=== PATIENT | male | born 1970 | race Caucasian/White ===

== ENCOUNTER 2018-02-07 13:40 | Inpatient (IN) | payer SELFPAY ==
[~2018-02-07] VITALS: Ht 180.3 cm; Wt 134.5 kg
[2018-02-07] MEDS ORDERED: IOHEXOL 350 MG/ML 10 ML VIAL (for RAD DIAG) IVCONTRAST ONE (13:41)
[2018-02-07 13:56] VITALS: BP 125/69; PULSE 60; RESP 18; TEMP 98.6; O2SAT 98
[2018-02-07 14:00] VITALS: BP 125/69; PULSE 65; RESP 18; TEMP 98.6; O2SAT 99
[2018-02-07] MEDS ORDERED: ASPIRIN 81 MG CHEW TAB PO ONE (14:00)
[2018-02-07] MEDS ORDERED: SODIUM CHLOR 0.9% 1000 ML INJ 1,000 ML IV ONE ×3 (14:00→17:45)
[2018-02-07] MEDS ORDERED: SODIUM CHLORIDE 0.9% FLUSH 10 ML FLUSH IVF PRN (14:00)
[2018-02-07 14:04] VITALS: O2SAT 99
--- NOTE | 2018-02-07 14:06 | PD ---
HPI Chief Complaint: Chest Pain Time Seen by Provider: 13:57 Travel History International Travel<30 days: No Contact w/Intl Traveler<30days: No Traveled to known affect area: No History of Present Illness HPI 47-year-old male with history of diabetes, employee here at the hospital, here for evaluation of sudden onset of chest pain while at work today. The patient describes substernal chest pressure that has been progressively worsening since time of onset. There are no modifying factors. Pain does not radiate. The pain is associated with diaphoresis, nausea, and an episode of vomiting. It is currently severe. No paresthesias or motor deficits. No fevers or recent illness. Patient felt well this morning. PFSH Past Medical History Diabetes: Yes (TYPE 2) Patient Takes Glucophage: Yes Diminished Hearing: No Hypertension: Yes Tetanus Vaccination: Unknown Influenza Vaccination: Yes ?: Not Social History Alcohol Use: No Tobacco Use: No Substance Use: No Allergies-Medications (Allergen,Severity, Reaction): Coded Allergies: naproxen (Verified Allergy, Unknown, Anaphylaxis, 02/07/18) Review of Systems Except as stated in HPI: all other systems reviewed are Neg Physical Exam Narrative GENERAL: Well-developed, well-nourished, keeps eyes closed, diaphoretic, no apparent distress. SKIN: Focused skin assessment warm/diaphoretic HEAD: Atraumatic. Normocephalic. EYES: Pupils equal and round. No scleral icterus. No injection or drainage. ENT: Mucous membranes pink and moist. NECK: Trachea midline. No JVD. CARDIOVASCULAR: Regular rate and rhythm. RESPIRATORY: No accessory muscle use. Clear to auscultation. Breath sounds equal bilaterally. GASTROINTESTINAL: Abdomen soft, non-tender, nondistended. MUSCULOSKELETAL: No obvious deformities. No clubbing. No cyanosis. No edema. NEUROLOGICAL: Awake and alert. No obvious cranial nerve deficits. Motor grossly within normal limits. Normal speech. PSYCHIATRIC: Appropriate mood and affect; insight and judgment normal. Data Data Last Documented VS Vital Signs Date Time Temp Pulse Resp B/P (MAP) Pulse Ox O2 Delivery O2 Flow Rate FiO2 02/07/18 18:44 18 02/07/18 14:04 99 Nasal Cannula 2.00 02/07/18 14:00 98.6 65 Orders Orders Electrocardiogram (02/07/18 13:57) Ckmb (Isoenzyme) Profile (02/07/18 13:57) Complete Blood Count With Diff (02/07/18 13:57) Comprehensive Metabolic Panel (02/07/18 13:57) Magnesium (Mg) (02/07/18 13:57) Prothrombin Time / Inr (Pt) (02/07/18 13:57) Act Partial Throm Time (Ptt) (02/07/18 13:57) Troponin I (02/07/18 13:57) Ecg Monitoring (02/07/18 13:57) Iv Access Insert/Monitor (02/07/18 13:57) Oximetry (02/07/18 13:57) Aspirin Chew (Aspirin Chew) (02/07/18 14:00) Sodium Chloride 0.9% Flush (Ns Flush) (02/07/18 14:00) Nitroglycerin Sl (Nitrostat Sl) (02/07/18 14:00) Sodium Chlor 0.9% 1000 Ml Inj (Ns 1000 M (02/07/18 14:00) Lipase (02/07/18 14:06) Chest, Single Ap (02/07/18 13:57) Sodium Chlor 0.9% 1000 Ml Inj (Ns 1000 M (02/07/18 14:45) CKMB (02/07/18 14:11) CKMB% (02/07/18 14:11) Morphine Inj (Morphine Inj) (02/07/18 15:45) Ct Abd/Pel W Iv Contrast(Rout) (02/07/18 15:57) Hydromorphone Pf Inj (Dilaudid Pf Inj) (02/07/18 16:00) Ondansetron Inj (Zofran Inj) (02/07/18 16:00) Ondansetron Inj (Zofran Inj) (02/07/18 16:15) Iohexol 350 Inj (Omnipaque 350 Inj) (02/07/18 13:41) Potassium Chlor 20 Meq Premix (Kcl 20 Me (02/07/18 17:45) Hydromorphone Pf Inj (Dilaudid Pf Inj) (02/07/18 17:45) Sodium Chlor 0.9% 1000 Ml Inj (Ns 1000 M (02/07/18 17:45) Admit To Inpatient (02/07/18 ) Vital Signs (Adult) Q4H (02/07/18 19:09) Activity Oob With Assistance (02/07/18 19:09) Chief Technical Officer / Telemetry .CONTINUOUS (02/07/18 19:09) Diet Heart Healthy (02/08/18 Breakfast) Sodium Chlor 0.9% 1000 Ml Inj (Ns 1000 M (02/07/18 19:09) Sodium Chloride 0.9% Flush (Ns Flush) (02/07/18 19:15) Sodium Chloride 0.9% Flush (Ns Flush) (02/07/18 21:00) Basic Metabolic Panel (Bmp) (02/08/18 06:00) Complete Blood Count With Diff (02/08/18 06:00) Creatine Kinase (Cpk) (02/07/18 19:09) Creatine Kinase (Cpk) (02/08/18 01:09) Pt Request For Service (02/07/18 19:09) Naloxone Inj (Narcan Inj) (02/07/18 19:15) Inpatient Certification (02/07/18 ) Admit Order (Ed Use Only) (02/07/18 19:11) Labs Laboratory Tests Test 02/07/18 14:11 White Blood Count 14.8 TH/MM3 Red Blood Count 6.54 MIL/MM3 Hemoglobin 18.2 GM/DL Hematocrit 53.0 % Mean Corpuscular Volume 81.0 FL Mean Corpuscular Hemoglobin 27.9 PG Mean Corpuscular Hemoglobin Concent 34.4 % Red Cell Distribution Width 13.2 % Platelet Count 322 TH/MM3 Mean Platelet Volume 10.8 FL Neutrophils (%) (Auto) 61.9 % Lymphocytes (%) (Auto) 26.4 % Monocytes (%) (Auto) 9.7 % Eosinophils (%) (Auto) 1.5 % Basophils (%) (Auto) 0.5 % Neutrophils # (Auto) 9.2 TH/MM3 Lymphocytes # (Auto) 3.9 TH/MM3 Monocytes # (Auto) 1.4 TH/MM3 Eosinophils # (Auto) 0.2 TH/MM3 Basophils # (Auto) 0.1 TH/MM3 CBC Comment DIFF FINAL Differential Comment Prothrombin Time 10.3 SEC Prothromb Time International Ratio 1.0 RATIO Activated Partial Thromboplast Time 23.0 SEC Blood Urea Nitrogen 18 MG/DL Creatinine 1.48 MG/DL Random Glucose 142 MG/DL Total Protein 9.1 GM/DL Albumin 4.5 GM/DL Calcium Level 9.5 MG/DL Magnesium Level 2.1 MG/DL Alkaline Phosphatase 99 U/L Aspartate Amino Transf (AST/SGOT) 25 U/L Alanine Aminotransferase (ALT/SGPT) 47 U/L Total Bilirubin 0.8 MG/DL Sodium Level 139 MEQ/L Potassium Level 2.9 MEQ/L Chloride Level 103 MEQ/L Carbon Dioxide Level 20.2 MEQ/L Anion Gap 16 MEQ/L Estimat Glomerular Filtration Rate 51 ML/MIN Total Creatine Kinase 166 U/L Creatine Kinase MB 2.6 NG/ML Troponin I LESS THAN 0.02 NG/ML Lipase GREATER THAN 25985 U/L MDM Medical Decision Making Medical Screen Exam Complete: Yes Emergency Medical Condition: Yes Interpretation(s) EKG: Sinus, rate 66, normal axis, normal intervals, no acute ischemic abnormality. Differential Diagnosis ACS, pneumothorax, pericarditis, PE, pneumonia, GERD Narrative Course Vital signs reviewed. CBC: WBC 14.8, hemoglobin 18.2, hematocrit 53, platelets 322. CMP is remarkable for potassium 2.9, creatinine 1.48, GFR 51, random glucose 142. Cardiac enzymes are negative. Lipase is greater than 30,000. CT abdomen pelvis: CONCLUSION: 1. Induration of the fat about the pancreas and focal fluid in the upper abdomen suggest pancreatitis. 2. Diffuse fatty change without focal lesion the liver. Patient was made aware of all findings and plan for admission. He was given normal saline IV and narcotic pain medications. He will be kept n.p.o. Case discussed with hospitalist Dr. Rodríguez who will admit the patient to the medical service. Diagnosis Primary Impression: Acute pancreatitis Qualified Codes: K85.90 - Acute pancreatitis without necrosis or infection, unspecified Admitting Information Admitting Physician Requests: Admit Berto Castillo MD Feb 07, 2018 14:06
[2018-02-07] MEDS: NITROGLYCERIN 0.4 MG SL 25 TABS/BTL SL SCH ×3 (14:11→14:32)
[2018-02-07 14:28] LABS: AUTOMATED NEUTROPHIL # 9.2 TH/MM3 (1.8-7.7); BASOPHIL # 0.1 TH/MM3 (0-0.2); BASOPHIL % 0.5 % (0.0-2.0); EOSINOPHIL # 0.2 TH/MM3 (0-0.4); EOSINOPHIL % 1.5 % (0.0-4.0); HEMOGLOBIN 18.2 GM/DL (13.0-17.0); LYMPH % 26.4 % (9.0-44.0); LYMPHOCYTE # 3.9 TH/MM3 (1.0-4.8); MEAN CORPUSCULAR HEMOGLOBIN 27.9 PG (27.0-34.0); MEAN CORPUSCULAR HGB CONC 34.4 % (32.0-36.0); MEAN PLATELET VOLUME 10.8 FL (7.0-11.0); MONO % 9.7 % (0.0-8.0); MONOCYTE # 1.4 TH/MM3 (0-0.9); NEUT % 61.9 % (16.0-70.0); PLATELET COUNT 322 TH/MM3 (150-450); RED BLOOD COUNT 6.54 MIL/MM3 (4.50-5.90); RED CELL DISTRIBUTION WIDTH 13.2 % (11.6-17.2); WHITE BLOOD COUNT 14.8 TH/MM3 (4.0-11.0)
[2018-02-07 14:36] LABS: PROTHROMBIN TIME - PATIENT 10.3 SEC (9.8-11.6)
--- NOTE | 2018-02-07 14:58 | RADRPT ---
EXAM DATE/TIME: 02/07/2018 14:27 [facility] COMPARISON: No previous studies available for comparison. INDICATIONS : Chest pain. Short of breath. MEDICAL HISTORY : None. SURGICAL HISTORY : None. ENCOUNTER: Initial ACUITY: 1 day PAIN SCORE: 8/10 LOCATION: Bilateral chest FINDINGS: A single view of the chest demonstrates the lungs to be symmetrically aerated without evidence of mas s, infiltrate or effusion. The cardiomediastinal contours are unremarkable. Osseous structures are intact. CONCLUSION: The lungs are clear. Porfirio Whitley MD on February 07, 2018 at 14:56 Board Certified Radiologist. This report was verified electronically.
[2018-02-07 15:20] LABS: ALBUMIN 4.5 GM/DL (3.4-5.0); ALKALINE PHOSPHATASE 99 U/L (45-117); ALT (GPT) 47 U/L (12-78); AST (GOT) 25 U/L (15-37); BICARBONATE 20.2 MEQ/L (21.0-32.0); BLOOD UREA NITROGEN 18 MG/DL (7-18); CALCIUM 9.5 MG/DL (8.5-10.1); CHLORIDE 103 MEQ/L (98-107); CREATININE 1.48 MG/DL (0.60-1.30); GLOMERULAR FILTRATION RATE 51 ML/MIN (>89); GLUCOSE,RANDOM 142 MG/DL (74-106); MAGNESIUM 2.1 MG/DL (1.5-2.5); SODIUM (NA) 139 MEQ/L (136-145); TOTAL BILIRUBIN ADULT 0.8 MG/DL (0.2-1.0); TOTAL PROTEIN 9.1 GM/DL (6.4-8.2); TROPONIN I LESS THAN 0.02 NG/ML (0.02-0.05)
[2018-02-07] MEDS ORDERED: MORPHINE SULFATE 2 MG/ML SYRINGE IV PUSH ONE (15:45)
[2018-02-07] MEDS ORDERED: HYDROmorphone HCL PF 2 MG/ML VIAL IV PUSH ONE ×2 (16:00→17:45)
[2018-02-07] MEDS ORDERED: ONDANSETRON HCL 4 MG/2 ML VIAL ONE (16:00)
[2018-02-07] MEDS ORDERED: ONDANSETRON HCL 4 MG/2 ML VIAL IV PUSH ONE (16:15)
--- NOTE | 2018-02-07 17:23 | RADRPT ---
EXAM DATE/TIME: 02/07/2018 16:51 [facility] COMPARISON: No previous studies available for comparison. INDICATIONS : Upper abdomen and back pain. Elevated Lipase. IV CONTRAST: 95 cc Omnipaque 350 (iohexol) IV ORAL CONTRAST: No oral contrast ingested. RADIATION DOSE: 20.99 CTDIvol (mGy) ; Patient body habitus MEDICAL HISTORY : Diabetes mellitus type 2. Hypertension. SURGICAL HISTORY : None. ENCOUNTER: Initial ACUITY: 1 day PAIN SCALE: 10/10 LOCATION: upper abdomen TECHNIQUE: Volumetric scanning of the abdomen and pelvis was performed. Using automated exposure control and ad justment of the mA and/or kV according to patient size, radiation dose was kept as low as reasonably achievable to obtain optimal diagnostic quality images. DICOM format image data is available electro nically for review and comparison. FINDINGS: LOWER LUNGS: The visualized lower lungs are clear. LIVER: Diffuse fatty change without focal lesion in the liver. No calcified gallstones.. SPLEEN: Normal size without lesion. PANCREAS: The margins of the pancreas are maintained. There is evidence of focal fluid about the head of the p ancreas and focal fluid tracking along the anterior margin Zuckerkandl's fascia and some induration o f the fat anterior to the head of the pancreas. No evidence of pseudocyst formation. No pancreatic ductal dilatation. KIDNEYS: Normal in size and shape. There is no mass, stone or hydronephrosis. ADRENAL GLANDS: Within normal limits. VASCULAR: There is no aortic aneurysm. BOWEL/MESENTERY: No dilated loops of small or large bowel. No fluid tracking along the paracolic gutter or in the dep endent pelvis. ABDOMINAL WALL: Within normal limits. RETROPERITONEUM: There is no lymphadenopathy. BLADDER: No wall thickening or mass. Smooth contours. REPRODUCTIVE: Within normal limits. INGUINAL: There is no lymphadenopathy or hernia. MUSCULOSKELETAL: Several small bone islands in iliac bones bilaterally. CONCLUSION: 1. Induration of the fat about the pancreas and focal fluid in the upper abdomen suggest pancreatitis . 2. Diffuse fatty change without focal lesion the liver. Porfirio Whitley MD on February 07, 2018 at 17:15 Board Certified Radiologist. This report was verified electronically.
[2018-02-07] MEDS ORDERED: POTASSIUM CHLOR 20 MEQ PREMIX 100 ML IV ONE (17:45)
[2018-02-07 19:00] VITALS: BP 134/72; PULSE 73; RESP 18; O2SAT 99
[2018-02-07] MEDS ORDERED: SODIUM CHLORIDE 0.9% FLUSH 10 ML FLUSH IV FLUSH PRN (19:15)
[2018-02-07] MEDS ORDERED: NALOXONE HCL 0.4 MG/ML AMP IV PUSH PRN (19:15)
[2018-02-07] MEDS ORDERED: POTASSIUM CHLORIDE 20 MEQ CONTROLLED RELEASE TAB PO ONE (19:30)
[2018-02-07] MEDS: SODIUM CHLOR 0.9% 1000 ML INJ 1,000 ML IV SCH (19:35)
--- NOTE | 2018-02-07 21:42 | HHI.HP ---
[facility]ician No Primary Care Physician Admission Diagnosis Acute pancreatitis Diagnoses: Travel History International Travel<30 Days: No Contact w/Intl Traveler <30 Da: No Traveled to Known Affected Are: No History of Present Illness 47-year-old male with a past medical history significant for hypertension and type 2 diabetes mellitus presents to the emergency department for evaluation of substernal chest pain/epigastric pain. The patient reports the pain started at 2 PM and was accompanied by mild shortness of breath. He states the pain radiates to between his shoulder blades. He denies any fever/chills. No nausea /vomiting/diarrhea. No weakness or fatigue. No associated cough. Review of Systems Except as stated in HPI: all other systems reviewed are Neg Past Family Social History Past Medical History Type 2 diabetes mellitus Hypertension Past Surgical History None Allergies: Coded Allergies: naproxen (Verified Allergy, Unknown, Anaphylaxis, 02/07/18) Family History Father with CAD Social History Denies alcohol, tobacco and illicit drugs. Physical Exam Vital Signs Vital Signs Date Time Temp Pulse Resp B/P (MAP) Pulse Ox O2 Delivery O2 Flow Rate FiO2 02/07/18 20:19 02/07/18 19:00 73 18 134/72 (92) 99 Nasal Cannula 2.00 02/07/18 18:44 18 02/07/18 17:01 18 02/07/18 16:10 18 02/07/18 14:24 18 02/07/18 14:04 99 Nasal Cannula 2.00 02/07/18 14:00 98.6 65 18 125/69 (87) 99 Nasal Cannula 2.00 02/07/18 14:00 68 18 95 Nasal Cannula 2.00 02/07/18 13:56 98.6 60 18 125/69 (87) 98 Physical Exam GENERAL: Obese, male sitting up in bed SKIN: No rashes, ecchymoses or lesions. Cool and dry. HEAD: Atraumatic. Normocephalic. No temporal or scalp tenderness. EYES: Pupils equal round and reactive. Extraocular motions intact. No scleral icterus. No injection or drainage. ENT: Nose without bleeding, purulent drainage or septal hematoma. Throat without erythema, tonsillar hypertrophy or exudate. Uvula midline. Airway patent. NECK: Trachea midline. No JVD or lymphadenopathy. Supple, nontender, no meningeal signs. CARDIOVASCULAR: Regular rate and rhythm without murmurs, gallops, or rubs. RESPIRATORY: Clear to auscultation. Breath sounds equal bilaterally. No wheezes , rales, or rhonchi. GASTROINTESTINAL: Abdomen soft, tender to palpation in the epigastric region, nondistended. No hepato-splenomegaly, or palpable masses. No guarding. MUSCULOSKELETAL: Extremities without clubbing, cyanosis, or edema. No joint tenderness, effusion, or edema noted. No calf tenderness. NEUROLOGICAL: Awake and alert. Cranial nerves II through XII intact. Motor and sensory grossly within normal limits. Normal speech. Laboratory Laboratory Tests Test 02/07/18 14:11 White Blood Count 14.8 Red Blood Count 6.54 Hemoglobin 18.2 Hematocrit 53.0 Mean Corpuscular Volume 81.0 Mean Corpuscular Hemoglobin 27.9 Mean Corpuscular Hemoglobin Concent 34.4 Red Cell Distribution Width 13.2 Platelet Count 322 Mean Platelet Volume 10.8 Neutrophils (%) (Auto) 61.9 Lymphocytes (%) (Auto) 26.4 Monocytes (%) (Auto) 9.7 Eosinophils (%) (Auto) 1.5 Basophils (%) (Auto) 0.5 Neutrophils # (Auto) 9.2 Lymphocytes # (Auto) 3.9 Monocytes # (Auto) 1.4 Eosinophils # (Auto) 0.2 Basophils # (Auto) 0.1 CBC Comment DIFF FINAL Differential Comment Prothrombin Time 10.3 Prothromb Time International Ratio 1.0 Activated Partial Thromboplast Time 23.0 Blood Urea Nitrogen 18 Creatinine 1.48 Random Glucose 142 Total Protein 9.1 Albumin 4.5 Calcium Level 9.5 Magnesium Level 2.1 Alkaline Phosphatase 99 Aspartate Amino Transf (AST/SGOT) 25 Alanine Aminotransferase (ALT/SGPT) 47 Total Bilirubin 0.8 Sodium Level 139 Potassium Level 2.9 Chloride Level 103 Carbon Dioxide Level 20.2 Anion Gap 16 Estimat Glomerular Filtration Rate 51 Total Creatine Kinase 166 Creatine Kinase MB 2.6 Troponin I LESS THAN 0.02 Lipase GREATER THAN 21344 Result Diagram: 02/07/18 1411 02/07/18 1411 Caprini VTE Risk Assessment Caprini VTE Risk Assessment: No/Low Risk (score <= 1) Caprini Risk Assessment Model Point Value = 1 Point Value = 2 Point Value = 3 Point Value = 5 Age 41-60 Minor surgery BMI > 25 kg/m2 Swollen legs Varicose veins or History of unexplained or recurrent spontaneous Oral contraceptives or hormone replacement Sepsis (< 1 month) Serious lung disease, including pneumonia (< 1 month) Abnormal pulmonary function Acute myocardial infarction Congestive heart failure (< 1 month) History of inflammatory bowel disease Medical patient at bed rest Age 61-74 Arthroscopic surgery Major open surgery (> 45 min) Laparoscopic surgery (> 45 min) Malignancy Confined to bed (> 72 hours) Immobilizing plaster cast Central venous access Age >= 75 History of VTE Family history of VTE Factor V Leiden Prothrombin [id number] Lupus anticoagulant Anticardiolipin antibodies Elevated serum homocysteine Heparin-induced thrombocytopenia Other congenital or acquired thrombophilia Stroke (< 1 month) Elective arthroplasty Hip, pelvis, or leg fracture Acute spinal cord injury (< 1 month) Prophylaxis Regimen Total Risk Factor Score Risk Level Prophylaxis Regimen 0-1 Low Early ambulation 2 Moderate Order ONE of the following: *Sequential Compression Device (SCD) *Heparin 5000 units SQ BID 3-4 Higher Order ONE of the following medications: *Heparin 5000 units SQ TID *Enoxaparin/Lovenox 40 mg SQ daily (WT < 150 kg, CrCl > 30 mL/min) *Enoxaparin/Lovenox 30 mg SQ daily (WT < 150 kg, CrCl > 10-29 mL/min) *Enoxaparin/Lovenox 30 mg SQ BID (WT < 150 kg, CrCl > 30 mL/min) AND/OR *Sequential Compression Device (SCD) 5 or more Highest Order ONE of the following medications: *Heparin 5000 units SQ TID (Preferred with Epidurals) *Enoxaparin/Lovenox 40 mg SQ daily (WT < 150 kg, CrCl > 30 mL/min) *Enoxaparin/Lovenox 30 mg SQ daily (WT < 150 kg, CrCl > 10-29 mL/min) *Enoxaparin/Lovenox 30 mg SQ BID (WT < 150 kg, CrCl > 30 mL/min) AND *Sequential Compression Device (SCD) Assessment and Plan Assessment and Plan Assessment/plan: 1. Pancreatitis Lipase greater than 30,000 CT of the abdomen/pelvis suggestive of pancreatitis IV fluid hydration Nothing by mouth Dilaudid for pain 2. Chest pain Likely secondary to pancreatitis Initial troponin negative EKG showed normal sinus rhythm without ST segment elevations or depressions, partially reviewed ACS rule out pending; serial troponins/EKGs 3. Type 2 diabetes mellitus Sliding scale insulin Monitor blood glucose 4. Hypertension IV Vasotec when necessary 5. Hypokalemia Status post IV replacement Monitor BMP FEN NPO NS at 200 cc/hr Electrolytes: as above Physician Certification 2 Midnight Certification Type: Admission for Inpatient Services Order for Inpatient Services The services are ordered in accordance with Medicare regulations or non- Medicare payer requirements, as applicable. In the case of services not specified as inpatient-only, they are appropriately provided as inpatient services in accordance with the 2-midnight benchmark. Estimated LOS (days): 2 2 days is the estimated time the patient will need to remain in the hospital, assuming treatment plan goals are met and no additional complications. Post-Hospital Plan: Not yet determined Nuvia Rodríguez MD Feb 07, 2018 21:42
[2018-02-07] MEDS ORDERED: DEXTROSE 50% IN WATER 50 ML VIAL(D50) IV PUSH PRN (21:45)
[2018-02-07] MEDS ORDERED: GLUCAGON 1 MG/ML VIAL OTHER PRN (21:45)
[2018-02-07 22:40] VITALS: PULSE 86
[2018-02-07] MEDS: HYDROmorphone HCL PF 2 MG/ML VIAL IV PUSH PRN (22:51)
[2018-02-07] MEDS: SODIUM CHLORIDE 0.9% FLUSH 10 ML FLUSH IV FLUSH SCH (22:55)
[2018-02-07 23:42] VITALS: BP 156/92; PULSE 81; RESP 20; TEMP 97.9; O2SAT 95
[2018-02-07 23:48] LABS: TROPONIN I LESS THAN 0.02 NG/ML (0.02-0.05)
[2018-02-08 00:17] VITALS: PULSE 93
[2018-02-08] MEDS: SODIUM CHLOR 0.9% 1000 ML INJ 1,000 ML IV SCH ×5 (01:25→20:54)
[2018-02-08] MEDS: HYDROmorphone HCL PF 2 MG/ML VIAL IV PUSH PRN ×6 (02:40→23:03)
[2018-02-08 05:38] LABS: BASOPHIL % 0.1 % (0.0-2.0); HEMATOCRIT 59.1 % (39.0-51.0); HEMOGLOBIN 19.4 GM/DL (13.0-17.0); LYMPHOCYTE # 0.6 TH/MM3 (1.0-4.8); MEAN CELL VOLUME 83.7 FL (80.0-100.0); MEAN CORPUSCULAR HEMOGLOBIN 27.5 PG (27.0-34.0); MEAN CORPUSCULAR HGB CONC 32.9 % (32.0-36.0); MEAN PLATELET VOLUME 10.7 FL (7.0-11.0); MONO % 8.2 % (0.0-8.0); MONOCYTE # 1.3 TH/MM3 (0-0.9); NEUT % 87.7 % (16.0-70.0); PLATELET COUNT 262 TH/MM3 (150-450); RED BLOOD COUNT 7.06 MIL/MM3 (4.50-5.90); RED CELL DISTRIBUTION WIDTH 13.6 % (11.6-17.2); WHITE BLOOD COUNT 15.9 TH/MM3 (4.0-11.0)
[2018-02-08 06:13] LABS: ALBUMIN 3.3 GM/DL (3.4-5.0); ALKALINE PHOSPHATASE 74 U/L (45-117); ALT (GPT) 35 U/L (12-78); AST (GOT) 24 U/L (15-37); BICARBONATE 17.5 MEQ/L (21.0-32.0); BLOOD UREA NITROGEN 21 MG/DL (7-18); CALCIUM 7.7 MG/DL (8.5-10.1); CHLORIDE 107 MEQ/L (98-107); CREATININE 1.47 MG/DL (0.60-1.30); DIRECT BILIRUBIN ADULT 0.2 MG/DL (0.0-0.2); GLOMERULAR FILTRATION RATE 51 ML/MIN (>89); GLUCOSE,RANDOM 355 MG/DL (74-106); INDIRECT BILIRUBIN 0.7 MG/DL (0.0-0.8); SODIUM (NA) 143 MEQ/L (136-145); TOTAL BILIRUBIN ADULT 0.9 MG/DL (0.2-1.0); TOTAL PROTEIN 7.2 GM/DL (6.4-8.2); TROPONIN I LESS THAN 0.02 NG/ML (0.02-0.05)
[2018-02-08 08:00] VITALS: BP 132/65; PULSE 111; RESP 18; TEMP 98.1; O2SAT 93
[2018-02-08] MEDS: SODIUM CHLORIDE 0.9% FLUSH 10 ML FLUSH IV FLUSH SCH ×2 (08:16→20:54)
[2018-02-08] MEDS: INSULIN ASPART SUPPLEMENTAL SCALE SQ SCH ×4 (08:18→21:18)
--- NOTE | 2018-02-08 08:44 | HHI.PR ---
Subjective Remarks f/u; acute pancreatitis in no acute distress. abdominal pain is a little better today. still has nausea but with no emesis. no fever. denies chest pain. Objective Vitals Vital Signs Date Time Temp Pulse Resp B/P (MAP) Pulse Ox O2 Delivery O2 Flow Rate FiO2 02/08/18 08:00 98.1 111 18 132/65 (87) 93 02/08/18 00:17 93 02/07/18 23:42 97.9 81 20 156/92 (113) 95 02/07/18 22:40 86 02/07/18 20:19 02/07/18 19:00 73 18 134/72 (92) 99 Nasal Cannula 2.00 02/07/18 18:44 18 02/07/18 17:01 18 02/07/18 16:10 18 02/07/18 14:24 18 02/07/18 14:04 99 Nasal Cannula 2.00 02/07/18 14:00 98.6 65 18 125/69 (87) 99 Nasal Cannula 2.00 02/07/18 14:00 68 18 95 Nasal Cannula 2.00 02/07/18 13:56 98.6 60 18 125/69 (87) 98 I/O 02/07/18 02/07/18 02/07/18 02/08/18 02/08/18 02/08/18 07:00 15:00 23:00 07:00 15:00 23:00 Intake Total 2000 ml 1000 ml Balance 2000 ml 1000 ml Intake IV Total 2000 ml 1000 ml Result Diagram: 02/08/18 0505 02/08/18 0505 Imaging Last Impressions Abdomen/Pelvis CT 02/07/18 1557 Signed Impressions: Service Date/Time: Wednesday, February 07, 2018 16:51 - CONCLUSION: 1. Induration of the fat about the pancreas and focal fluid in the upper abdomen suggest pancreatitis. 2. Diffuse fatty change without focal lesion the liver. Porfirio Whitley MD Chest X-Ray 02/07/18 1357 Signed Impressions: Service Date/Time: Wednesday, February 07, 2018 14:27 - CONCLUSION: The lungs are clear. Porfirio Whitley MD Objective Remarks GENERAL: This is a well-nourished, well-developed patient, in no apparent distress. CARDIOVASCULAR: Regular rate and regular rhythm without murmurs, gallops, or rubs. RESPIRATORY: Clear to auscultation. Breath sounds equal bilaterally. No wheezes , rales, or rhonchi. GASTROINTESTINAL: Abdomen soft, generalized tenderness, nondistended. Normal, active bowel sounds MUSCULOSKELETAL: Extremities without clubbing, cyanosis, or edema. NEURO: Alert & Oriented x4 to person, place, time, situation. Moves all ext x4 Medications and IVs Inpatient Medications Aspirin (Aspirin Chew) 324 mg ONCE ONCE PO Last administered on 02/07/18at 14:10 ; Start 02/07/18 at 14:00; Stop 02/07/18 at 14:01; Status DC Dextrose (D50w (Vial) Inj) 50 ml UNSCH PRN IV PUSH HYPOGLYCEMIA-SEE COMMENTS; Start 02/07/18 at 21:45 Enalaprilat (Vasotec Inj) 2.5 mg Q6H PRN IV PUSH SBP>160, DBP>90; Start at 21:45 Glucagon (Glucagon Inj) 1 mg UNSCH PRN OTHER HYPOGLYCEMIA-SEE COMMENTS; Start 02/07/18 at 21:45 Hydromorphone HCl (Dilaudid Pf Inj) 1 mg Q4H PRN IV PUSH pain 6-10 Last administered on 02/08/18at 06:42; Start 02/07/18 at 21:45 Insulin Aspart (NovoLOG SUPPLEMENTAL SCALE) 1 ACHS SLIDING SCALE SQ Last administered on 02/08/18at 08:18; Start 02/08/18 at 08:00 Morphine Sulfate (Morphine Inj) 4 mg ONCE ONCE IV PUSH Last administered on 02/07/18at 16:05; Start 02/07/18 at 15:45; Stop 02/07/18 at 15:46; Status DC Naloxone HCl (Narcan Inj) 0.4 mg UNSCH PRN IV PUSH SEE LABEL COMMENTS; Start at 19:15 Nitroglycerin (Nitrostat Sl) 0.4 mg Q5M SL Last administered on 02/07/18at 14:32 ; Start 02/07/18 at 14:00; Stop 02/07/18 at 14:11; Status DC Ondansetron HCl (Zofran Inj) 4 mg ONCE ONCE IV PUSH Last administered on at 16:05; Start 4/2/18 at 16:15; Stop 02/07/18 at 16:16; Status DC Potassium Chloride (KCl) 40 meq ONCE ONCE PO Last administered on 02/07/18at 19: 36; Start 02/07/18 at 19:30; Stop 02/07/18 at 19:31; Status DC Sodium Chloride (NS Flush) 2 ml BID IV FLUSH Last administered on 02/07/18at 22: 55; Start 02/07/18 at 21:00 A/P Assessment and Plan A/P 1. Pancreatitis Lipase trending down. CT of the abdomen/pelvis suggestive of pancreatitis will check GB sonogram. IV fluid hydration NPO for now. Dilaudid for pain 2. Chest pain- resolved. Likely secondary to pancreatitis serial troponin negative EKG showed normal sinus rhythm without ST segment elevations or depressions, partially reviewed 3. Type 2 diabetes mellitus Sliding scale insulin Monitor blood glucose 4. Hypertension IV Vasotec when necessary 5. Hypokalemia Status post IV replacement Monitor BMP 6. renal insufficiency with unknown duration continue IV fluid and monitor the renal function; BMP tomorrow. DVT prophylaxis with subq Lovenox. Petar Mccormick MD Feb 08, 2018 08:44
[2018-02-08] MEDS: ONDANSETRON HCL 4 MG/2 ML VIAL IV PUSH PRN ×2 (10:43→18:54)
[2018-02-08] MEDS: ENOXAPARIN SODIUM 40 MG/0.4 ML SYRINGE SQ SCH (10:43)
--- NOTE | 2018-02-08 11:19 | RADRPT ---
EXAM DATE/TIME: 02/08/2018 09:49 [facility] COMPARISON: No previous studies available for comparison. INDICATIONS : RUQ pain. MEDICAL HISTORY : Diabetes mellitus type 2. Hypertension. Abdominal pain. SURGICAL HISTORY : None. ENCOUNTER: Initial ACUITY: 1 day PAIN SCORE: 8/10 LOCATION: Right upper quadrant TECHNOLOGIST IMPRESSION: MEASUREMENTS: LIVER: 17.1 cm length COMMON DUCT: 7 mm RIGHT KIDNEY: 10.5 x 6.2 x 4.7 cm FINDINGS: There is a moderate amount of ascites about the right upper quadrant. LIVER: Normal echotexture without focal lesion or ductal dilatation. Hepatopedal flow in the portal vein. COMMON DUCT: No intraluminal mass or stone visualized. GALLBLADDER: Contains no stones, demonstrates no wall thickening or pericholecystic fluid. PANCREAS: Not well seen. RIGHT KIDNEY: No evidence of hydronephrosis, stone, or mass. CONCLUSION: 1. No gallstones seen. 2. Upper abdominal ascites, mild. Porfirio Whitley MD on February 08, 2018 at 11:14 Board Certified Radiologist. This report was verified electronically.
[2018-02-08 12:00] VITALS: BP 127/61; PULSE 113; RESP 18; TEMP 97.7; O2SAT 94
[2018-02-08 16:00] VITALS: BP 164/88; PULSE 121; RESP 18; TEMP 98.9; O2SAT 100
--- NOTE | 2018-02-08 16:17 | EKG ---
Date Performed: 02/07/2018 Time Performed: 13:58:39 PTAGE: 47 years EKG: Sinus rhythm LEFT ANTERIOR FASCICULAR BLOCK ABNORMAL ECG NO PREVIOUS TRACING DOCTOR: Randell Moreno Interpretating Date/Time 02/08/2018 16:13:52
--- NOTE | 2018-02-08 16:49 | EKG ---
Date Performed: 02/07/2018 Time Performed: 21:40:53 PTAGE: 47 years EKG: Sinus rhythm POSSIBLE LEFT ATRIAL ENLARGEMENT LEFT ANTERIOR FASCICULAR BLOCK Since previous tracing, no significa nt change noted ABNORMAL ECG PREVIOUS TRACING : 02/07/2018 13.58 DOCTOR: Randell Moreno Interpretating Date/Time 02/08/2018 16:45:19
[2018-02-08 20:00] VITALS: BP 154/95; PULSE 121; RESP 18; TEMP 98.3; O2SAT 93
[2018-02-09] VITALS: BP 160/84; PULSE 118; RESP 18; TEMP 98; O2SAT 90
[2018-02-09] MEDS: SODIUM CHLOR 0.9% 1000 ML INJ 1,000 ML IV SCH ×4 (01:43→19:50)
[2018-02-09] MEDS: HYDROmorphone HCL PF 2 MG/ML VIAL IV PUSH PRN ×6 (03:08→23:08)
[2018-02-09] MEDS: ONDANSETRON HCL 4 MG/2 ML VIAL IV PUSH PRN ×3 (03:09→23:21)
[2018-02-09 04:00] VITALS: BP 158/82; PULSE 121; RESP 18; TEMP 97.8; O2SAT 90
[2018-02-09 08:00] VITALS: BP 167/87; PULSE 127; RESP 17; TEMP 98; O2SAT 90
[2018-02-09] MEDS: INSULIN ASPART SUPPLEMENTAL SCALE SQ SCH ×4 (08:14→21:59)
[2018-02-09] MEDS: SODIUM CHLORIDE 0.9% FLUSH 10 ML FLUSH IV FLUSH SCH ×2 (08:14→19:50)
[2018-02-09 09:11] LABS: AUTOMATED NEUTROPHIL # 17.8 TH/MM3 (1.8-7.7); BASOPHIL % 0.1 % (0.0-2.0); HEMATOCRIT 56.1 % (39.0-51.0); HEMOGLOBIN 18.2 GM/DL (13.0-17.0); LYMPH % 3.5 % (9.0-44.0); LYMPHOCYTE # 0.7 TH/MM3 (1.0-4.8); MEAN CELL VOLUME 84.9 FL (80.0-100.0); MEAN CORPUSCULAR HEMOGLOBIN 27.6 PG (27.0-34.0); MEAN CORPUSCULAR HGB CONC 32.5 % (32.0-36.0); MEAN PLATELET VOLUME 10.2 FL (7.0-11.0); MONO % 8.2 % (0.0-8.0); MONOCYTE # 1.7 TH/MM3 (0-0.9); NEUT % 88.2 % (16.0-70.0); PLATELET COUNT 213 TH/MM3 (150-450); RED BLOOD COUNT 6.61 MIL/MM3 (4.50-5.90); RED CELL DISTRIBUTION WIDTH 14.4 % (11.6-17.2); WHITE BLOOD COUNT 20.2 TH/MM3 (4.0-11.0)
[2018-02-09 09:46] LABS: BICARBONATE 16.9 MEQ/L (21.0-32.0); CALCIUM 7.1 MG/DL (8.5-10.1); CREATININE 1.72 MG/DL (0.60-1.30)
[2018-02-09 10:06] LABS: CALCIUM-PROTEIN CORRECTED 7.5 MG/DL (8.5-10.1); TOTAL PROTEIN 6.3 GM/DL (6.4-8.2)
[2018-02-09] MEDS: ENOXAPARIN SODIUM 40 MG/0.4 ML SYRINGE SQ SCH (11:16)
--- NOTE | 2018-02-09 11:29 | HHI.PR ---
Subjective Remarks in no acute distress. abdominal vinay is slightly better today. no nausea or vomiting. Objective Vitals Vital Signs Date Time Temp Pulse Resp B/P (MAP) Pulse Ox O2 Delivery O2 Flow Rate FiO2 02/09/18 08:00 98.0 127 17 167/87 (113) 90 02/09/18 04:00 121 02/09/18 04:00 97.8 121 18 158/82 (107) 90 02/09/18 00:00 98.0 118 18 160/84 (109) 90 02/08/18 20:00 98.3 121 18 154/95 (114) 93 02/08/18 16:00 98.9 121 18 164/88 (113) 100 02/08/18 15:30 17 02/08/18 12:00 97.7 113 18 127/61 (83) 94 I/O 02/08/18 02/08/18 02/08/18 02/09/18 02/09/18 02/09/18 07:00 15:00 23:00 07:00 15:00 23:00 Intake Total 1000 ml 1000 ml 1000 ml Output Total 700 ml 1600 ml 1200 ml Balance 1000 ml -700 ml -600 ml -200 ml Intake Oral 0 ml IV Total 1000 ml 1000 ml 1000 ml Output Urine Total 700 ml 1600 ml 1200 ml # Bowel Movements 1 Result Diagram: 02/09/18 0841 02/09/18 0841 Imaging Last Impressions Gall Bladder Ultrasound 02/08/18 0000 Signed Impressions: Service Date/Time: Thursday, February 08, 2018 09:49 - CONCLUSION: 1. No gallstones seen. 2. Upper abdominal ascites, mild. Porfirio Whitley MD Abdomen/Pelvis CT 02/07/18 1286 Signed Impressions: Service Date/Time: Wednesday, February 07, 2018 16:51 - CONCLUSION: 1. Induration of the fat about the pancreas and focal fluid in the upper abdomen suggest pancreatitis. 2. Diffuse fatty change without focal lesion the liver. Porfirio Whitley MD Chest X-Ray 02/07/18 [id number] Signed Impressions: Service Date/Time: Wednesday, February 07, 2018 14:27 - CONCLUSION: The lungs are clear. Porfirio Whitley MD Objective Remarks GENERAL: This is a well-nourished, well-developed patient, in no apparent distress. CARDIOVASCULAR: Regular rate and regular rhythm without murmurs, gallops, or rubs. RESPIRATORY: Clear to auscultation. Breath sounds equal bilaterally. No wheezes , rales, or rhonchi. GASTROINTESTINAL: Abdomen soft, generalized tenderness, nondistended. Normal, active bowel sounds MUSCULOSKELETAL: Extremities without clubbing, cyanosis, or edema. NEURO: Alert & Oriented x4 to person, place, time, situation. Moves all ext x4 Medications and IVs Inpatient Medications Aspirin (Aspirin Chew) 324 mg ONCE ONCE PO Last administered on 02/07/18at 14:10 ; Start 02/07/18 at 14:00; Stop 02/07/18 at 14:01; Status DC Dextrose (D50w (Vial) Inj) 50 ml UNSCH PRN IV PUSH HYPOGLYCEMIA-SEE COMMENTS; Start 02/07/18 at 21:45 Enalaprilat (Vasotec Inj) 2.5 mg Q6H PRN IV PUSH SBP>160, DBP>90; Start at 21:45 Enoxaparin Sodium (Lovenox Inj) 40 mg Q24H SQ Last administered on 02/09/18at 11: 16; Start 02/08/18 at 11:00 Glucagon (Glucagon Inj) 1 mg UNSCH PRN OTHER HYPOGLYCEMIA-SEE COMMENTS; Start 02/07/18 at 21:45 Hydromorphone HCl (Dilaudid Pf Inj) 1 mg Q4H PRN IV PUSH pain 6-10 Last administered on 02/09/18at 11:16; Start 02/07/18 at 21:45 Insulin Aspart (NovoLOG SUPPLEMENTAL SCALE) 1 ACHS SLIDING SCALE SQ Last administered on 02/09/18at 08:14; Start 02/08/18 at 08:00 Morphine Sulfate (Morphine Inj) 4 mg ONCE ONCE IV PUSH Last administered on 02/07/18at 16:05; Start 02/07/18 at 15:45; Stop 02/07/18 at 15:46; Status DC Naloxone HCl (Narcan Inj) 0.4 mg UNSCH PRN IV PUSH SEE LABEL COMMENTS; Start at 19:15 Nitroglycerin (Nitrostat Sl) 0.4 mg Q5M SL Last administered on 02/07/18at 14:32 ; Start 02/07/18 at 14:00; Stop 02/07/18 at 14:11; Status DC Ondansetron HCl (Zofran Inj) 4 mg Q8H PRN IV PUSH NAUSEA Last administered on 03:09; Start 02/08/18 at 08:45 Potassium Chloride (KCl) 40 meq ONCE ONCE PO Last administered on 02/07/18 19: 36; Start 02/07/18 at 19:30; Stop 02/07/18 at 19:31; Status DC Sodium Chloride (NS Flush) 2 ml BID IV FLUSH Last administered on 02/09/18at 08: 14; Start 02/07/18 at 21:00 A/P Assessment and Plan A/P 1. Pancreatitis Lipase trending down. CT of the abdomen/pelvis suggestive of pancreatitis GB sonogram with no gallstone. IV fluid hydration start on clear liquid diet. Dilaudid for pain 2. Chest pain- resolved. Likely secondary to pancreatitis serial troponin negative EKG showed normal sinus rhythm without ST segment elevations or depressions, partially reviewed 3. Type 2 diabetes mellitus Sliding scale insulin Monitor blood glucose 4. Hypertension IV Vasotec when necessary 5. Hypokalemia Status post IV replacement Monitor BMP 6. renal insufficiency with unknown duration continue IV fluid and monitor the renal function; BMP tomorrow. 7. tachycardia/ leukocytosis- due to pancreatitis- continue to monitor. DVT prophylaxis with subq Lovenox. Discharge Planning not ready for discharge today. Petar Mccormick MD Feb 09, 2018 11:29
[2018-02-09 12:00] VITALS: BP 167/94; PULSE 130; RESP 18; TEMP 98.2; O2SAT 90
--- NOTE | 2018-02-09 13:30 | EKG ---
Date Performed: 02/08/2018 Time Performed: 03:25:12 PTAGE: 47 years EKG: Sinus tachycardia Possible left atrial abnormality Left anterior fascicular block [place] e ECG NO PREVIOUS TRACING DOCTOR: Kishan Hernandez Interpretating Date/Time 02/09/2018 13:27:50
[2018-02-09 16:00] VITALS: BP 163/95; PULSE 124; RESP 21; TEMP 97.2; O2SAT 94
[2018-02-09 20:00] VITALS: BP 142/83; PULSE 122; RESP 20; TEMP 97.9; O2SAT 93
[2018-02-09] MEDS: ENALAPRILAT 2.5 MG/2 ML VIAL IV PUSH PRN (23:21)
[2018-02-10] VITALS: BP 164/83; PULSE 116; RESP 20; TEMP 97.7; O2SAT 93
[2018-02-10] MEDS: SODIUM CHLOR 0.9% 1000 ML INJ 1,000 ML IV SCH (02:57)
[2018-02-10] MEDS: HYDROmorphone HCL PF 2 MG/ML VIAL IV PUSH PRN ×2 (02:58→07:03)
[2018-02-10 03:11] VITALS: BP 155/64; PULSE 109; RESP 20; TEMP 97.2; O2SAT 94
[2018-02-10 08:00] VITALS: BP 160/94; PULSE 120; RESP 19; TEMP 96.1; O2SAT 94
[2018-02-10] MEDS: SODIUM CHLORIDE 0.9% FLUSH 10 ML FLUSH IV FLUSH SCH (08:47)
[2018-02-10] MEDS: ENALAPRILAT 2.5 MG/2 ML VIAL IV PUSH PRN (08:50)
[2018-02-10] MEDS: INSULIN ASPART SUPPLEMENTAL SCALE SQ SCH (08:51)
[2018-02-10 08:52] LABS: AUTOMATED NEUTROPHIL # 10.7 TH/MM3 (1.8-7.7); BASOPHIL % 0.1 % (0.0-2.0); HEMATOCRIT 46.9 % (39.0-51.0); HEMOGLOBIN 15.6 GM/DL (13.0-17.0); LYMPHOCYTE # 0.6 TH/MM3 (1.0-4.8); MEAN CELL VOLUME 84.2 FL (80.0-100.0); MEAN CORPUSCULAR HGB CONC 33.2 % (32.0-36.0); MEAN PLATELET VOLUME 10.2 FL (7.0-11.0); MONO % 8.6 % (0.0-8.0); MONOCYTE # 1.1 TH/MM3 (0-0.9); NEUT % 86.3 % (16.0-70.0); PLATELET COUNT 183 TH/MM3 (150-450); RED BLOOD COUNT 5.57 MIL/MM3 (4.50-5.90); RED CELL DISTRIBUTION WIDTH 14.2 % (11.6-17.2); WHITE BLOOD COUNT 12.4 TH/MM3 (4.0-11.0)
--- NOTE | 2018-02-10 08:59 | HHI.PR ---
Subjective Remarks seems to be in mild sob. now on two liters of oxygen via N/C. afebrile. abdominal pain is better. could tolerate the diet so far. d/w the RN at the bedside. Objective Vitals Vital Signs Date Time Temp Pulse Resp B/P (MAP) Pulse Ox O2 Delivery O2 Flow Rate FiO2 02/10/18 03:11 97.2 109 20 155/64 (94) 94 02/10/18 00:00 97.7 116 20 164/83 (110) 93 02/09/18 20:00 97.9 122 20 142/83 (102) 93 02/09/18 16:00 97.2 124 21 163/95 (117) 94 02/09/18 12:00 98.2 130 18 167/94 (118) 90 I/O 02/09/18 02/09/18 02/09/18 02/10/18 02/10/18 02/10/18 07:00 15:00 23:00 07:00 15:00 23:00 Intake Total 1000 ml 1980 ml 1000 ml Output Total 1200 ml 550 ml 450 ml 400 ml Balance -200 ml 1430 ml 550 ml -400 ml Intake Oral 0 ml 980 ml IV Total 1000 ml 1000 ml 1000 ml Output Urine Total 1200 ml 550 ml 450 ml 400 ml # Voids 1 1 # Bowel Movements 0 Result Diagram: 02/09/18 0841 02/09/18 0841 Imaging Last Impressions Gall Bladder Ultrasound 02/08/18 0000 Signed Impressions: Service Date/Time: Thursday, February 08, 2018 09:49 - CONCLUSION: 1. No gallstones seen. 2. Upper abdominal ascites, mild. Porfirio Whitley MD Abdomen/Pelvis CT 02/07/18 9341 Signed Impressions: Service Date/Time: Wednesday, February 07, 2018 16:51 - CONCLUSION: 1. Induration of the fat about the pancreas and focal fluid in the upper abdomen suggest pancreatitis. 2. Diffuse fatty change without focal lesion the liver. Porfirio Whitley MD Chest X-Ray 02/07/18 2062 Signed Impressions: Service Date/Time: Wednesday, February 07, 2018 14:27 - CONCLUSION: The lungs are clear. Porfirio Whitley MD Objective Remarks GENERAL: This is a well-nourished, well-developed patient, with mild sob. CARDIOVASCULAR: Regular rate and regular rhythm without murmurs, gallops, or rubs. RESPIRATORY: Clear to auscultation. Breath sounds equal bilaterally. No wheezes , rales, or rhonchi. GASTROINTESTINAL: Abdomen soft, no tenderness, nondistended. Normal, active bowel sounds MUSCULOSKELETAL: Extremities without clubbing, cyanosis, or edema. NEURO: Alert & Oriented x4 to person, place, time, situation. Moves all ext x4 Medications and IVs Inpatient Medications Aspirin (Aspirin Chew) 324 mg ONCE ONCE PO Last administered on 02/07/18at 14:10 ; Start 02/07/18 at 14:00; Stop 02/07/18 at 14:01; Status DC Dextrose (D50w (Vial) Inj) 50 ml UNSCH PRN IV PUSH HYPOGLYCEMIA-SEE COMMENTS; Start 02/07/18 at 21:45 Enalaprilat (Vasotec Inj) 2.5 mg Q6H PRN IV PUSH SBP>160, DBP>90 Last administered on 02/10/18 08:50; Start 02/07/18 at 21:45 Enoxaparin Sodium (Lovenox Inj) 40 mg Q24H SQ Last administered on 02/09/18 11: 16; Start 02/08/18 at 11:00 Glucagon (Glucagon Inj) 1 mg UNSCH PRN OTHER HYPOGLYCEMIA-SEE COMMENTS; Start 02/07/18 at 21:45 Hydromorphone HCl (Dilaudid Pf Inj) 1 mg Q4H PRN IV PUSH pain 6-10 Last administered on 02/10/18 07:03; Start 02/07/18 at 21:45 Insulin Aspart (NovoLOG SUPPLEMENTAL SCALE) 1 ACHS SLIDING SCALE SQ Last administered on 02/10/18 08:51; Start 02/08/18 at 08:00 Morphine Sulfate (Morphine Inj) 4 mg ONCE ONCE IV PUSH Last administered on 16:05; Start 02/07/18 at 15:45; Stop 02/07/18 at 15:46; Status DC Naloxone HCl (Narcan Inj) 0.4 mg UNSCH PRN IV PUSH SEE LABEL COMMENTS; Start at 19:15 Nitroglycerin (Nitrostat Sl) 0.4 mg Q5M SL Last administered on 02/07/18at 14:32 ; Start 02/07/18 at 14:00; Stop 02/07/18 at 14:11; Status DC Ondansetron HCl (Zofran Inj) 4 mg Q8H PRN IV PUSH NAUSEA Last administered on 23:21; Start 02/08/18 at 08:45 Potassium Chloride (KCl) 40 meq ONCE ONCE PO Last administered on 02/07/18 19: 36; Start 02/07/18 at 19:30; Stop 02/07/18 at 19:31; Status DC Sodium Chloride (NS Flush) 2 ml BID IV FLUSH Last administered on 02/09/18 19: 50; Start 02/07/18 at 21:00 A/P Assessment and Plan A/P 1. Pancreatitis Lipase trending down. CT of the abdomen/pelvis suggestive of pancreatitis GB sonogram with no gallstone. IV fluid hydration started on clear liquid diet. will advance the diet slowly. Dilaudid for pain 2. Chest pain- resolved. Likely secondary to pancreatitis serial troponin negative EKG showed normal sinus rhythm without ST segment elevations or depressions, partially reviewed 3. mild hypoxemia/sob- now on two liters of oxygen via N/C keep on oxygen to keep O2 sat >90%/ neb treatment- check CXR today. 4. Type 2 diabetes mellitus Sliding scale insulin Monitor blood glucose 5. Hypertension IV Vasotec when necessary 6. Hypokalemia Status post IV replacement Monitor BMP 7. renal insufficiency with unknown duration continue IV fluid and monitor the renal function; BMP tomorrow. 8. tachycardia/ leukocytosis- due to pancreatitis- will check CXR- blood work today continue to monitor. DVT prophylaxis with subq Lovenox. Discharge Planning patient is not ready for discharge. although the patient wants to sign out despite our lengthy discussion. Petar Mccormick MD Feb 10, 2018 08:59
[2018-02-10] MEDS ORDERED: RESP: ALBUTEROL 2.5 MG/IPRATROPIUM 0.5 MG NEB (PRN) NEB (09:00)
--- NOTE | 2018-02-10 09:28 | RADRPT ---
EXAM DATE/TIME: 02/10/2018 09:03 [facility] COMPARISON: CHEST SINGLE AP, February 07, 2018, 14:27. INDICATIONS : Short of breath MEDICAL HISTORY : Diabetes mellitus type II. Pancreatitis. Hypertension. SURGICAL HISTORY : None. ENCOUNTER: Subsequent ACUITY: 3 days PAIN SCORE: 0/10 LOCATION: Bilateral chest FINDINGS: Image degradation due to patient motion causing blurring of the bronchopulmonary markings. Interval development of consolidation in the left lower lobe with loss of delineation of the entire left hemid iaphragm and flair bronchograms. Right lung is clear. The heart is normal size. CONCLUSION: Interval development of left lower lobe consolidation. Porfirio Whitley MD on February 10, 2018 at 9:25 Board Certified Radiologist. This report was verified electronically.
[2018-02-10 09:31] VITALS: O2SAT 96
[2018-02-10 10:20] LABS: BICARBONATE 20.4 MEQ/L (21.0-32.0); CALCIUM 6.4 MG/DL (8.5-10.1); CREATININE 1.61 MG/DL (0.60-1.30)
[2018-02-10 10:35] LABS: TOTAL PROTEIN 6.2 GM/DL (6.4-8.2)
[2018-02-10 10:52] LABS: CALCIUM-PROTEIN CORRECTED 6.8 MG/DL (8.5-10.1)
[2018-02-10] MEDS ORDERED: AMLO2.5T PO (16:07)
[2018-02-10] MEDS ORDERED: GLIP5TAB8 PO (16:07)
[2018-02-10] MEDS ORDERED: LISI2.5T3 PO (16:07)
[2018-02-10] MEDS ORDERED: METF1000 PO (16:07)
[2018-02-10] MEDS ORDERED: DAPA1TAB PO (16:07)
--- NOTE | 2018-02-11 12:39 | HHI.DS ---
Discharge Summary Admission Date Feb 07, 2018 at 19:12 Discharge Date: Feb 10, 2018 Admitting Diagnosis Acute pancreatitis (1) Pancreatitis ICD Code: K85.90 - Acute pancreatitis without necrosis or infection, unspecified Status: Acute Procedures none Brief History - From Admission 47-year-old male with a past medical history significant for hypertension and type 2 diabetes mellitus presents to the emergency department for evaluation of substernal chest pain/epigastric pain. The patient reports the pain started at 2 PM and was accompanied by mild shortness of breath. He states the pain radiates to between his shoulder blades. He denies any fever/chills. No nausea /vomiting/diarrhea. No weakness or fatigue. No associated cough. CBC/BMP: 02/10/18 0746 02/10/18 0746 Significant Findings Laboratory Tests Test 02/09/18 08:41 02/10/18 07:46 White Blood Count 20.2 TH/MM3 (4.0-11.0) 12.4 TH/MM3 (4.0-11.0) Red Blood Count 6.61 MIL/MM3 (4.50-5.90) Hemoglobin 18.2 GM/DL (13.0-17.0) Hematocrit 56.1 % (39.0-51.0) Neutrophils (%) (Auto) 88.2 % (16.0-70.0) 86.3 % (16.0-70.0) Lymphocytes (%) (Auto) 3.5 % (9.0-44.0) 5.0 % (9.0-44.0) Monocytes (%) (Auto) 8.2 % (0.0-8.0) 8.6 % (0.0-8.0) Neutrophils # (Auto) 17.8 TH/MM3 (1.8-7.7) 10.7 TH/MM3 (1.8-7.7) Lymphocytes # (Auto) 0.7 TH/MM3 (1.0-4.8) 0.6 TH/MM3 (1.0-4.8) Monocytes # (Auto) 1.7 TH/MM3 (0-0.9) 1.1 TH/MM3 (0-0.9) Blood Urea Nitrogen 39 MG/DL (7-18) 47 MG/DL (7-18) Creatinine 1.72 MG/DL (0.60-1.30) 1.61 MG/DL (0.60-1.30) Random Glucose 371 MG/DL (74-106) 297 MG/DL (74-106) Total Protein 6.3 GM/DL (6.4-8.2) 6.2 GM/DL (6.4-8.2) Calcium Level 7.1 MG/DL (8.5-10.1) 6.4 MG/DL (8.5-10.1) Chloride Level 116 MEQ/L (98-107) 110 MEQ/L (98-107) Carbon Dioxide Level 16.9 MEQ/L (21.0-32.0) 20.4 MEQ/L (21.0-32.0) Estimat Glomerular Filtration Rate 43 ML/MIN (>89) 46 ML/MIN (>89) Protein Corrected Calcium 7.5 MG/DL (8.5-10.1) 6.8 MG/DL (8.5-10.1) Lipase 9931 U/L (73-393) 4917 U/L (73-393) PE at Discharge GENERAL: This is a well-nourished, well-developed patient, with mild sob. CARDIOVASCULAR: Regular rate and regular rhythm without murmurs, gallops, or rubs. RESPIRATORY: Clear to auscultation. Breath sounds equal bilaterally. No wheezes , rales, or rhonchi. GASTROINTESTINAL: Abdomen soft, no tenderness, nondistended. Normal, active bowel sounds MUSCULOSKELETAL: Extremities without clubbing, cyanosis, or edema. NEURO: Alert & Oriented x4 to person, place, time, situation. Moves all ext x4 Hospital Course 1. Pancreatitis Lipase trending down. CT of the abdomen/pelvis suggestive of pancreatitis GB sonogram with no gallstone. IV fluid hydration started on clear liquid diet. will advance the diet slowly. Dilaudid for pain 2. Chest pain- resolved. Likely secondary to pancreatitis serial troponin negative EKG showed normal sinus rhythm without ST segment elevations or depressions, partially reviewed 3. mild hypoxemia/sob- now on two liters of oxygen via N/C keep on oxygen to keep O2 sat >90%/ neb treatment- check CXR today. 4. Type 2 diabetes mellitus Sliding scale insulin Monitor blood glucose 5. Hypertension IV Vasotec when necessary 6. Hypokalemia Status post IV replacement Monitor BMP 7. renal insufficiency with unknown duration continue IV fluid and monitor the renal function; BMP tomorrow. 8. tachycardia/ leukocytosis- due to pancreatitis- will check CXR- blood work today continue to monitor. Pt Condition on Discharge: Deteriorating Discharge Disposition: Discharge Home Discharge Time: <= 30 minutes (signed out against medical advice.) Petar Mccormick MD Feb 11, 2018 12:39
== END 2018-02-10 11:17 | disposition left against medical advice (07) | DRG 439 ==
LOC: NEPE 13:40 → NEDA 19:12 → N07B 20:20
PROVIDERS: ADMIT Internal Medicine; ATTEND Internal Medicine
DX: K85.90 Acute pancreatitis without necrosis or infection, unspecified (principal); Z68.41 Body mass index [BMI] 40.0-44.9, adult; I10 Essential (primary) hypertension; E11.9 Type 2 diabetes mellitus without complications; R07.2 Precordial pain; R06.02 Shortness of breath; E87.6 Hypokalemia; R09.02 Hypoxemia; N28.9 Disorder of kidney and ureter, unspecified; R00.0 Tachycardia, unspecified; E66.9 Obesity, unspecified
CPT/HCPCS: 71045; 74177; 76705; 80048; 80053; 80076; 82550; 82552; 82948; 83690; 83735; 84155; 84484; 85025; 85610; 85730; 93005; 94664; 96361; 96365; 96375; 96376; J1170; J1650; J1815; J2270; J2405; J3480; J7030; Q9967

== ENCOUNTER 2018-02-10 15:54 | Inpatient (IN) | payer SELFPAY ==
[~2018-02-10] VITALS: Ht 180.3 cm; Wt 144.0 kg
[2018-02-10 16:03] VITALS: BP 163/78; PULSE 127; RESP 18; TEMP 98.5; O2SAT 94
[2018-02-10] MEDS ORDERED: AMLO2.5T PO (16:07)
[2018-02-10] MEDS ORDERED: GLIP5TAB8 PO (16:07)
[2018-02-10] MEDS ORDERED: LISI2.5T3 PO (16:07)
[2018-02-10] MEDS ORDERED: METF1000 PO (16:07)
[2018-02-10] MEDS ORDERED: DAPA1TAB PO (16:07)
[2018-02-10] MEDS ORDERED: SODIUM CHLOR 0.9% 1000 ML INJ 1,000 ML IV ONE ×2 (16:15→17:15)
[2018-02-10] MEDS ORDERED: ONDANSETRON HCL 4 MG/2 ML VIAL IV PUSH ONE (16:15)
[2018-02-10] MEDS ORDERED: RESP: ALBUTEROL 2.5 MG/IPRATROPIUM 0.5 MG NEB (SCH) NEB ONE (16:30)
--- NOTE | 2018-02-10 16:33 | PD ---
HPI Chief Complaint: GI Complaint Time Seen by Provider: 16:05 Travel History International Travel<30 days: No Contact w/Intl Traveler<30days: No Traveled to known affect area: No History of Present Illness HPI 47 y/o male states he left against advice shortness of breath and abdominal pain got worse so he came back. He states he also developed chills. He denies any other new complaints since recently in the hospital with pancreatitis. He states he was told he got pancreatitis because his cholesterol is bad. Quality is hard to catch breath. Severity is progressive. He states he feels worse when he moves around. He denies other modifying factors. PFSH Past Medical History Diabetes: Yes (TYPE 2) Patient Takes Glucophage: Yes Diminished Hearing: No Hypertension: Yes Pancreatitis: Yes Past Surgical History Surgical History: No Previous Surgery Social History Alcohol Use: No Tobacco Use: No Substance Use: No Allergies-Medications (Allergen,Severity, Reaction): Coded Allergies: naproxen (Verified Allergy, Unknown, Anaphylaxis, 02/07/18) Reported Meds & Prescriptions Reported Meds & Active Scripts Active Reported Amlodipine (Amlodipine Besylate) 2.5 Mg Tab Unknown Dose PO DAILY Lisinopril 2.5 Mg Tab Unknown Dose PO DAILY Farxiga (Dapagliflozin) 5 Mg Tab Unknown Dose PO DAILY Glipizide 5 Mg Tab 5 Mg PO DAILY Take 30 minutes before a meal Metformin (Metformin HCl) 1,000 Mg Tab Unknown Dose PO BIDPC Review of Systems Except as stated in HPI: all other systems reviewed are Neg Physical Exam Narrative GENERAL: 47-year-old male who appears uncomfortable SKIN: Focused skin assessment warm/dry. HEAD: Atraumatic. Normocephalic. EYES: Pupils equal and round. No scleral icterus. No injection or drainage. ENT: No nasal bleeding or discharge. Mucous membranes pink and moist. NECK: Trachea midline. CARDIOVASCULAR: Tachycardic rate and regular rhythm. RESPIRATORY: No accessory muscle use. decreased breath sounds bilaterally. GASTROINTESTINAL: Abdomen soft, tender left upper quadrant, nondistended. MUSCULOSKELETAL: No obvious deformities. No clubbing. No cyanosis. NEUROLOGICAL: Awake and alert. moves all extremities. Normal speech. Data Data Last Documented VS Vital Signs Date Time Temp Pulse Resp B/P (MAP) Pulse Ox O2 Delivery O2 Flow Rate FiO2 02/10/18 16:35 98 Nasal Cannula 3.00 02/10/18 16:03 98.5 127 18 163/78 (106) Orders Orders Complete Blood Count With Diff (02/10/18 16:06) Comprehensive Metabolic Panel (02/10/18 16:06) Lipase (02/10/18 16:06) Iv Access Insert/Monitor (02/10/18 16:06) Chest, Single Ap (02/10/18 16:06) Lactic Acid Sepsis Protocol (02/10/18 16:06) Urinalysis - C+S If Indicated (02/10/18 16:06) Blood Culture (02/10/18 16:06) Ecg Monitoring (02/10/18 16:06) Oximetry (02/10/18 16:06) Sodium Chlor 0.9% 1000 Ml Inj (Ns 1000 M (02/10/18 16:15) Ondansetron Inj (Zofran Inj) (02/10/18 16:15) Albuterol-Ipratropium Neb (Duoneb Neb) (02/10/18 16:30) Electrocardiogram (02/10/18 16:10) Cefepime Inj (Maxipime Inj) (02/10/18 17:00) Azithromycin Inj (Zithromax Inj) (02/10/18 17:00) Sodium Chlor 0.9% 1000 Ml Inj (Ns 1000 M (02/10/18 17:15) Calcium Gluconate Inj (Calcium Gluconate (02/10/18 17:30) Admit Order (Ed Use Only) (02/10/18 17:30) Labs Laboratory Tests Test 02/10/18 16:14 White Blood Count 13.4 TH/MM3 Red Blood Count 5.42 MIL/MM3 Hemoglobin 15.0 GM/DL Hematocrit 45.2 % Mean Corpuscular Volume 83.4 FL Mean Corpuscular Hemoglobin 27.7 PG Mean Corpuscular Hemoglobin Concent 33.2 % Red Cell Distribution Width 14.3 % Platelet Count 225 TH/MM3 Mean Platelet Volume 10.1 FL Neutrophils (%) (Auto) 88.6 % Lymphocytes (%) (Auto) 3.3 % Monocytes (%) (Auto) 7.9 % Eosinophils (%) (Auto) 0.0 % Basophils (%) (Auto) 0.2 % Neutrophils # (Auto) 11.8 TH/MM3 Lymphocytes # (Auto) 0.4 TH/MM3 Monocytes # (Auto) 1.1 TH/MM3 Eosinophils # (Auto) 0.0 TH/MM3 Basophils # (Auto) 0.0 TH/MM3 CBC Comment AUTO DIFF Blood Urea Nitrogen 48 MG/DL Creatinine 1.88 MG/DL Random Glucose 319 MG/DL Total Protein 6.2 GM/DL Albumin 2.2 GM/DL Calcium Level 6.7 MG/DL Alkaline Phosphatase 61 U/L Aspartate Amino Transf (AST/SGOT) 43 U/L Alanine Aminotransferase (ALT/SGPT) 27 U/L Total Bilirubin 2.4 MG/DL Sodium Level 142 MEQ/L Potassium Level 4.0 MEQ/L Chloride Level 110 MEQ/L Carbon Dioxide Level 20.4 MEQ/L Anion Gap 12 MEQ/L Estimat Glomerular Filtration Rate 39 ML/MIN Lactic Acid Level 2.9 mmol/L Protein Corrected Calcium 7.1 MG/DL Lipase 3222 U/L MDM Medical Decision Making Medical Screen Exam Complete: Yes Emergency Medical Condition: Yes Medical Record Reviewed: Yes (pmh confirmed, while admitted for pancreatitis recently left AMA) Interpretation(s) CBC & BMP Diagram 02/10/18 16:14 Total Protein 6.2 L, Albumin 2.2 L, Calcium Level 6.7 *L, Alkaline Phosphatase 61, Aspartate Amino Transf (AST/SGOT) 43 H, Alanine Aminotransferase (ALT/SGPT) 27, Total Bilirubin 2.4 H Last 24 hours Impressions Chest X-Ray 02/10/18 1606 Signed Impressions: Service Date/Time: February 16:17 - CONCLUSION: Persistent, but decreasing size, left lower lobe consolidation. Porfirio Whitley MD Differential Diagnosis Pancreatitis, pneumonia, COPD Narrative Course Will check blood work, chest x-ray and monitor Workup shows infiltrate on chest x-ray. Given recently in hospital we will give hospital-acquired pneumonia coverage. Patient did not get any treatment of this earlier as he left AMA before chest x-ray results complete. He agrees to stay in the hospital now. Sepsis Criteria SIRS Criteria (2 or more): Heart rate over 90, WBC > 70711, < 4000 or > 10% bands Sepsis Criteria (SIRS+source): Infect source susp/known Severe Sepsis (+one): Lactate >2 Criteria Outcome: Meets severe sepsis criteria Physician Communication Physician Communication dr mcgovern states no longer in hospital, requests to call admitting doctor dr swift agrees to admit Diagnosis Primary Impression: Sepsis Qualified Codes: A41.9 - Sepsis, unspecified organism Additional Impressions: Pneumonia Qualified Codes: J18.1 - Lobar pneumonia, unspecified organism Pancreatitis Qualified Codes: K85.90 - Acute pancreatitis without necrosis or infection, unspecified Hypocalcemia Admitting Information Admitting Physician Requests: Admit Micaela Soliz MD Feb 10, 2018 16:33
[2018-02-10 16:35] VITALS: O2SAT 98
--- NOTE | 2018-02-10 16:41 | RADRPT ---
EXAM DATE/TIME: 02/10/2018 16:17 [facility] COMPARISON: CHEST SINGLE AP, February 10, 2018, 9:03. INDICATIONS : Shortness of breath. MEDICAL HISTORY : Diabetes mellitus type 2. Hypertension. Abdominal pain. SURGICAL HISTORY : None. ENCOUNTER: Initial ACUITY: 1 day PAIN SCORE: 0/10 LOCATION: Bilateral chest FINDINGS: There is persistent consolidation in the left lower lung, slightly smaller than on prior examination; portions of the lateral left hemidiaphragm are now discernible. The right lung is clear. The heart is normal in size. CONCLUSION: Persistent, but decreasing size, left lower lobe consolidation. Porfirio Whitley MD on February 10, 2018 at 16:38 Board Certified Radiologist. This report was verified electronically.
[2018-02-10 16:42] LABS: AUTOMATED NEUTROPHIL # 11.8 TH/MM3 (1.8-7.7); BASOPHIL % 0.2 % (0.0-2.0); HEMATOCRIT 45.2 % (39.0-51.0); LYMPH % 3.3 % (9.0-44.0); LYMPHOCYTE # 0.4 TH/MM3 (1.0-4.8); MEAN CELL VOLUME 83.4 FL (80.0-100.0); MEAN CORPUSCULAR HEMOGLOBIN 27.7 PG (27.0-34.0); MEAN CORPUSCULAR HGB CONC 33.2 % (32.0-36.0); MEAN PLATELET VOLUME 10.1 FL (7.0-11.0); MONO % 7.9 % (0.0-8.0); MONOCYTE # 1.1 TH/MM3 (0-0.9); NEUT % 88.6 % (16.0-70.0); PLATELET COUNT 225 TH/MM3 (150-450); RED BLOOD COUNT 5.42 MIL/MM3 (4.50-5.90); RED CELL DISTRIBUTION WIDTH 14.3 % (11.6-17.2); WHITE BLOOD COUNT 13.4 TH/MM3 (4.0-11.0)
[2018-02-10] MEDS ORDERED: CEFEPIME INJ 2,000 MG in SODIUM CHLORIDE 0.9% INJ 100 ML IV STA (17:00)
[2018-02-10] MEDS ORDERED: AZITHROMYCIN INJ 500 MG in SODIUM CHLOR 0.9% 250 ML INJ 250 ML IV STA (17:00)
[2018-02-10 17:03] LABS: LACTIC ACID SEPSIS PROTOCOL 2.9 mmol/L (0.4-2.0)
[2018-02-10 17:06] LABS: ALBUMIN 2.2 GM/DL (3.4-5.0); BICARBONATE 20.4 MEQ/L (21.0-32.0); CALCIUM 6.7 MG/DL (8.5-10.1); CREATININE 1.88 MG/DL (0.60-1.30); TOTAL BILIRUBIN ADULT 2.4 MG/DL (0.2-1.0); TOTAL PROTEIN 6.2 GM/DL (6.4-8.2)
[2018-02-10 17:09] LABS: CALCIUM-PROTEIN CORRECTED 7.1 MG/DL (8.5-10.1)
[2018-02-10] MEDS ORDERED: CALCIUM GLUCONATE INJ 1 GM in SODIUM CHLORIDE 0.9% INJ 90 ML IV ONE (17:30)
[2018-02-10] MEDS ORDERED: MORPHINE SULFATE 2 MG/ML SYRINGE IV PUSH PRN (17:45)
[2018-02-10] MEDS ORDERED: NALOXONE HCL 0.4 MG/ML AMP IV PUSH PRN (17:45)
[2018-02-10 17:46] LABS: BANDS 10 % (0-6); LYMPHOCYTES 3 % (9-44); MONOCYTES 7 % (0-8); NEUTROPHIL # MANUAL DIFF 12.1 TH/MM3 (1.8-7.7); POLYS (SEG NEUTROPHILS) 80 % (16-70); TOXIC GRANULATION 1+ (NORMAL); TOXIC VACUOLATION PRESENT (NONE SEEN)
[2018-02-10 18:02] VITALS: BP 170/85; PULSE 124; RESP 26; TEMP 98.2; O2SAT 97
[2018-02-10 18:37] VITALS: BP 152/80; PULSE 120; RESP 24; O2SAT 97
[2018-02-10 19:17] LABS: BILIRUBIN, URINE NEG (NEG); BLOOD, URINE NEG (NEG); GLUCOSE,URINE 1000 mg/dL (NEG); KETONE, URINE 10 mg/dL (NEG); NITRITE,URINE NEG (NEG); PH, URINE 5.5 (5.0-8.5); URINE COLOR YELLOW (YELLW/STRAW); URINE LEUKOCYTE ESTERASE NEG (NEG)
[2018-02-10 20:00] VITALS: BP 170/94; PULSE 121; RESP 19; TEMP 99.1; O2SAT 93
--- NOTE | 2018-02-10 20:06 | EKG ---
Date Performed: 02/10/2018 Time Performed: 16:25:43 PTAGE: 47 years EKG: SINUS TACHYCARDIA POOR R WAVE PROGRESSION LEFT ANTERIOR FASCICULAR BLOCK ABNORMAL ECG PREVIOUS TRACING : 02/10/2018 16.10 No significant change from previous tracing noted. DOCTOR: Tim Mcgee Interpretating Date/Time 02/10/2018 20:05:19
[2018-02-10] MEDS: SODIUM CHLOR 0.9% 1000 ML INJ 1,000 ML IV SCH (20:25)
[2018-02-10] MEDS: SODIUM CHLORIDE 0.9% FLUSH 10 ML FLUSH IV FLUSH SCH (20:29)
[2018-02-10] MEDS ORDERED: PILL SPLITTER OTHER PRN (23:45)
[2018-02-11] VITALS (13 sets, daily range): BP systolic 113–163; BP diastolic 67–79; PULSE 106–155; RESP 19–71; TEMP 97.6–98.9; O2SAT 91–99
[2018-02-11] MEDS ORDERED: GLUCAGON 1 MG/ML VIAL OTHER PRN
[2018-02-11] MEDS ORDERED: DEXTROSE 50% IN WATER 50 ML VIAL(D50) IV PUSH PRN
[2018-02-11] MEDS ORDERED: SODIUM CHLOR 0.9% 1000 ML INJ 1,000 ML IV SCH
--- NOTE | 2018-02-11 00:02 | HHI.HP ---
[facility] Primary Care Physician No Primary Care Physician Admission Diagnosis sepsis, pneumonia, pancreatitis Diagnoses: Travel History International Travel<30 Days: No Contact w/Intl Traveler <30 Da: No Traveled to Known Affected Are: No History of Present Illness 47-year-old male who was admitted on 02/07/18 and treated for acute pancreatitis return to the emergency department today for the evaluation of abdominal pain and increasing shortness of breath. The patient left AGAINST MEDICAL ADVICE earlier today. When questioned about this, the patient states that he felt his pain was not being adequately treated at night and he was just laying in bed staring at the ceiling unable to sleep. During his hospitalization, the patient developed a new left lower lobe consolidation. He continues to complain of shortness of breath. He states he also has severe abdominal pain in the epigastrium that radiates to the back. He denies any chest pain. No nausea/vomiting/diarrhea. No weakness. No lateralizing signs/symptoms. Review of Systems Except as stated in HPI: all other systems reviewed are Neg Past Family Social History Past Medical History Type 2 diabetes mellitus Hypertension Past Surgical History None Reported Medications Reported Meds & Active Scripts Active Reported Amlodipine (Amlodipine Besylate) 2.5 Mg Tab Unknown Dose PO DAILY Lisinopril 2.5 Mg Tab Unknown Dose PO DAILY Farxiga (Dapagliflozin) 5 Mg Tab Unknown Dose PO DAILY Glipizide 5 Mg Tab 5 Mg PO DAILY Take 30 minutes before a meal Metformin (Metformin HCl) 1,000 Mg Tab Unknown Dose PO BIDPC Allergies: Coded Allergies: naproxen (Verified Allergy, Unknown, Anaphylaxis, 02/07/18) Family History Father with CAD Social History Denies alcohol, tobacco and illicit drugs. Physical Exam Vital Signs Vital Signs Date Time Temp Pulse Resp B/P (MAP) Pulse Ox O2 Delivery O2 Flow Rate FiO2 02/10/18 20:39 20 02/10/18 20:00 99.1 121 19 170/94 (119) 93 02/10/18 18:37 120 24 152/80 (104) 97 Room Air 02/10/18 18:37 120 24 152/80 (104) 97 02/10/18 18:02 98.2 124 26 170/85 (113) 97 Room Air 02/10/18 16:35 98 Nasal Cannula 3.00 02/10/18 16:09 96 Nasal Cannula 2.00 02/10/18 16:03 98.5 127 18 163/78 (106) 94 Physical Exam GENERAL: Obese, male sitting up in bed SKIN: No rashes, ecchymoses or lesions. Cool and dry. HEAD: Atraumatic. Normocephalic. No temporal or scalp tenderness. EYES: Pupils equal round and reactive. Extraocular motions intact. No scleral icterus. No injection or drainage. ENT: Nose without bleeding, purulent drainage or septal hematoma. Throat without erythema, tonsillar hypertrophy or exudate. Uvula midline. Airway patent. NECK: Trachea midline. No JVD or lymphadenopathy. Supple, nontender, no meningeal signs. CARDIOVASCULAR: Regular rate and rhythm without murmurs, gallops, or rubs. RESPIRATORY: Clear to auscultation. Breath sounds equal bilaterally. No wheezes , rales, or rhonchi. GASTROINTESTINAL: Abdomen soft, tender to palpation in the epigastric region, nondistended. No hepato-splenomegaly, or palpable masses. No guarding. MUSCULOSKELETAL: Extremities without clubbing, cyanosis, or edema. No joint tenderness, effusion, or edema noted. No calf tenderness. NEUROLOGICAL: Awake and alert. Cranial nerves II through XII intact. Motor and sensory grossly within normal limits. Normal speech. Laboratory Laboratory Tests Test 02/10/18 16:14 02/10/18 18:14 02/10/18 21:05 White Blood Count 13.4 Red Blood Count 5.42 Hemoglobin 15.0 Hematocrit 45.2 Mean Corpuscular Volume 83.4 Mean Corpuscular Hemoglobin 27.7 Mean Corpuscular Hemoglobin Concent 33.2 Red Cell Distribution Width 14.3 Platelet Count 225 Mean Platelet Volume 10.1 Neutrophils (%) (Auto) 88.6 Lymphocytes (%) (Auto) 3.3 Monocytes (%) (Auto) 7.9 Eosinophils (%) (Auto) 0.0 Basophils (%) (Auto) 0.2 Neutrophils # (Auto) 11.8 Lymphocytes # (Auto) 0.4 Monocytes # (Auto) 1.1 Eosinophils # (Auto) 0.0 Basophils # (Auto) 0.0 CBC Comment AUTO DIFF Differential Total Cells Counted 100 Neutrophils % (Manual) 80 Band Neutrophils % 10 Lymphocytes % 3 Monocytes % 7 Neutrophils # (Manual) 12.1 Differential Comment FINAL DIFF MANUAL Toxic Granulation 1+ Toxic Vacuolation PRESENT Platelet Estimate NORMAL Platelet Morphology Comment NORMAL Blood Urea Nitrogen 48 Creatinine 1.88 Random Glucose 319 Total Protein 6.2 Albumin 2.2 Calcium Level 6.7 Alkaline Phosphatase 61 Aspartate Amino Transf (AST/SGOT) 43 Alanine Aminotransferase (ALT/SGPT) 27 Total Bilirubin 2.4 Sodium Level 142 Potassium Level 4.0 Chloride Level 110 Carbon Dioxide Level 20.4 Anion Gap 12 Estimat Glomerular Filtration Rate 39 Lactic Acid Level 2.9 2.1 Protein Corrected Calcium 7.1 Lipase 3222 Urine Color YELLOW Urine Turbidity CLEAR Urine pH 5.5 Urine Specific [place] 1.030 Urine Protein TRACE Urine Glucose (UA) 1000 Urine Ketones 10 Urine Occult Blood NEG Urine Nitrite NEG Urine Bilirubin NEG Urine Urobilinogen LESS THAN 2.0 Urine Leukocyte Esterase NEG Urine RBC LESS THAN 1 Microscopic Urinalysis Comment CATH-CULT NOT IND Date/Time Source Procedure Growth Status 02/10/18 16:14 Blood Peripheral Aerobic Blood Culture Pending Received 02/10/18 16:14 Blood Peripheral Anaerobic Blood Culture Pending Received Result Diagram: 02/10/18 1614 02/10/18 1614 Caprini VTE Risk Assessment Caprini VTE Risk Assessment: No/Low Risk (score <= 1) Caprini Risk Assessment Model Point Value = 1 Point Value = 2 Point Value = 3 Point Value = 5 Age 41-60 Minor surgery BMI > 25 kg/m2 Swollen legs Varicose veins or History of unexplained or recurrent spontaneous Oral contraceptives or hormone replacement Sepsis (< 1 month) Serious lung disease, including pneumonia (< 1 month) Abnormal pulmonary function Acute myocardial infarction Congestive heart failure (< 1 month) History of inflammatory bowel disease Medical patient at bed rest Age 61-74 Arthroscopic surgery Major open surgery (> 45 min) Laparoscopic surgery (> 45 min) Malignancy Confined to bed (> 72 hours) Immobilizing plaster cast Central venous access Age >= 75 History of VTE Family history of VTE Factor V Leiden Prothrombin [id number] Lupus anticoagulant Anticardiolipin antibodies Elevated serum homocysteine Heparin-induced thrombocytopenia Other congenital or acquired thrombophilia Stroke (< 1 month) Elective arthroplasty Hip, pelvis, or leg fracture Acute spinal cord injury (< 1 month) Prophylaxis Regimen Total Risk Factor Score Risk Level Prophylaxis Regimen 0-1 Low Early ambulation 2 Moderate Order ONE of the following: *Sequential Compression Device (SCD) *Heparin 5000 units SQ BID 3-4 Higher Order ONE of the following medications: *Heparin 5000 units SQ TID *Enoxaparin/Lovenox 40 mg SQ daily (WT < 150 kg, CrCl > 30 mL/min) *Enoxaparin/Lovenox 30 mg SQ daily (WT < 150 kg, CrCl > 10-29 mL/min) *Enoxaparin/Lovenox 30 mg SQ BID (WT < 150 kg, CrCl > 30 mL/min) AND/OR *Sequential Compression Device (SCD) 5 or more Highest Order ONE of the following medications: *Heparin 5000 units SQ TID (Preferred with Epidurals) *Enoxaparin/Lovenox 40 mg SQ daily (WT < 150 kg, CrCl > 30 mL/min) *Enoxaparin/Lovenox 30 mg SQ daily (WT < 150 kg, CrCl > 10-29 mL/min) *Enoxaparin/Lovenox 30 mg SQ BID (WT < 150 kg, CrCl > 30 mL/min) AND *Sequential Compression Device (SCD) Assessment and Plan Assessment and Plan Assessment/plan: 1. Hospital-acquired pneumonia/sepsis Patient with tachycardia, leukocytosis and elevated lactic acid Chest x-ray significant for new left lower lobe consolidation Patient complains of shortness of breath Azithromycin/cefepime Supplemental oxygen as needed IV fluid hydration Repeat lactic acid pending 2. Pancreatitis Patient continues to complain of abdominal pain Lipase trending down Clear liquid diet - advance slowly IV fluid hydration Morphine for pain 3. Chronic kidney disease Creatinine 1.88 IV fluid hydration Monitor renal function 4. Type 2 diabetes mellitus Holding home oral anti-hyperglycemics Sliding scale insulin Monitor blood glucose 5. Hypertension Continue amlodipine FEN CLD NS at 150 cc/hr Electrolytes: monitor and replete prn Physician Certification 2 Midnight Certification Type: Admission for Inpatient Services Order for Inpatient Services The services are ordered in accordance with Medicare regulations or non- Medicare payer requirements, as applicable. In the case of services not specified as inpatient-only, they are appropriately provided as inpatient services in accordance with the 2-midnight benchmark. Estimated LOS (days): 2 2 days is the estimated time the patient will need to remain in the hospital, assuming treatment plan goals are met and no additional complications. Post-Hospital Plan: Not yet determined Nuvia Rodríguez MD Feb 11, 2018 00:02
[2018-02-11] MEDS: MORPHINE SULFATE 4 MG/ML INJ IV PUSH PRN ×6 (00:04→22:44)
[2018-02-11] MEDS ORDERED: ACETAMINOPHEN 325 MG TAB PO ONE (01:30)
[2018-02-11 03:05] LABS: AUTOMATED NEUTROPHIL # 10.3 TH/MM3 (1.8-7.7); BASOPHIL % 0.2 % (0.0-2.0); HEMATOCRIT 44.1 % (39.0-51.0); HEMOGLOBIN 14.6 GM/DL (13.0-17.0); LYMPH % 5.1 % (9.0-44.0); LYMPHOCYTE # 0.6 TH/MM3 (1.0-4.8); MEAN CELL VOLUME 83.7 FL (80.0-100.0); MEAN CORPUSCULAR HEMOGLOBIN 27.7 PG (27.0-34.0); MEAN CORPUSCULAR HGB CONC 33.1 % (32.0-36.0); MEAN PLATELET VOLUME 9.8 FL (7.0-11.0); MONO % 7.1 % (0.0-8.0); MONOCYTE # 0.8 TH/MM3 (0-0.9); NEUT % 87.6 % (16.0-70.0); PLATELET COUNT 222 TH/MM3 (150-450); RED BLOOD COUNT 5.28 MIL/MM3 (4.50-5.90); RED CELL DISTRIBUTION WIDTH 14.2 % (11.6-17.2); WHITE BLOOD COUNT 11.8 TH/MM3 (4.0-11.0)
[2018-02-11 03:27] LABS: BICARBONATE 20.7 MEQ/L (21.0-32.0); CALCIUM 6.9 MG/DL (8.5-10.1); CREATININE 1.43 MG/DL (0.60-1.30)
[2018-02-11 03:48] LABS: TOTAL PROTEIN 6.5 GM/DL (6.4-8.2)
[2018-02-11] MEDS: SODIUM CHLOR 0.9% 1000 ML INJ 1,000 ML IV SCH (04:03)
[2018-02-11 04:09] LABS: CALCIUM-PROTEIN CORRECTED 7.2 MG/DL (8.5-10.1)
[2018-02-11] MEDS ORDERED: CALCIUM GLUCONATE INJ 1 GM in DEXTROSE 5% IN WATER 100ML INJ 100 ML IV ONE ×2 (04:30)
[2018-02-11] MEDS: CEFEPIME INJ 2,000 MG in SODIUM CHLORIDE 0.9% INJ 100 ML IV SCH ×2 (05:14→17:14)
[2018-02-11] MEDS ORDERED: DILTIAZEM HCL 25 MG/5 ML VIAL IV ONE (05:15)
[2018-02-11] MEDS ORDERED: METOPROLOL TARTRATE 5 MG/5 ML VIAL IV PUSH ONE (05:30)
--- NOTE | 2018-02-11 05:43 | EKG ---
Date Performed: 02/10/2018 Time Performed: 16:10:25 PTAGE: 47 years EKG: SINUS TACHYCARDIA LEFT AXIS DEVIATION BASELINE ARTEFACT POOR R WAVE PROGRESSION ABNORMAL EC G PREVIOUS TRACING : 02/08/2018 03.25 Compared to previous tracing, probably no significant racheal ash DOCTOR: Tim Mcgee Interpretating Date/Time 02/11/2018 05:42:32
[2018-02-11] MEDS: METOPROLOL TARTRATE 5 MG/5 ML VIAL IV PUSH PRN ×6 (05:45→14:41)
[2018-02-11] MEDS ORDERED: AMIODARONE INJ 150 MG in DEXTROSE 5% IN WATER 100ML INJ 97 ML IV ONE ×2 (06:09)
[2018-02-11] MEDS ORDERED: AMIODARONE INJ 450 MG in DEXTROSE 5% IN WATE(EXCEL) INJ 241 ML IV PRN ×2 (06:19)
[2018-02-11] MEDS ORDERED: AMIODARONE INJ 450 MG in SODIUM CHLOR 0.9% (EXCEL) INJ 241 ML IV PRN (06:45)
[2018-02-11] MEDS ORDERED: CHLORHEXIDINE GLUCONATE 2 % 1 PACK (2 CLOTHS)(extra cloths) TOPICAL PRN (07:00)
[2018-02-11] MEDS: AZITHROMYCIN 250 MG TAB PO SCH (07:34)
[2018-02-11] MEDS: SODIUM CHLORIDE 0.9% FLUSH 10 ML FLUSH IV FLUSH SCH ×2 (07:34→20:37)
[2018-02-11 07:43] LABS: BANDS 38 % (0-6); LYMPHOCYTES 4 % (9-44); MONOCYTES 7 % (0-8); NEUTROPHIL # MANUAL DIFF 10.5 TH/MM3 (1.8-7.7); POLYS (SEG NEUTROPHILS) 51 % (16-70)
[2018-02-11] MEDS: INSULIN ASPART SUPPLEMENTAL SCALE SQ SCH ×4 (08:41→20:39)
--- NOTE | 2018-02-11 08:46 | EKG ---
Date Performed: 02/11/2018 Time Performed: 04:59:36 PTAGE: 47 years EKG: Atrial fibrillation with uncontrolled ventricular response Left axis deviation Lateral T wa ve changes are nonspecific Abnormal ECG PREVIOUS TRACING : 02/10/2018 16.25 Compared to previous tracing, atrial fibrillation has repla kaylee sinus tachycardia. DOCTOR: Tim Mcgee Interpretating Date/Time 02/11/2018 08:44:55
[2018-02-11] MEDS ORDERED: amLODIPine BESYLATE 5 MG TAB PO SCH (09:00)
[2018-02-11] MEDS ORDERED: DILTIAZEM INJ 125 MG in SODIUM CHLORIDE 0.9% INJ 100 ML IV PRN (09:30)
[2018-02-11] MEDS ORDERED: DILTIAZEM HCL 25 MG/5 ML VIAL IV PUSH ONE (09:30)
[2018-02-11] MEDS ORDERED: METOPROLOL TARTRATE 25 MG TAB PO ONE (10:15)
[2018-02-11] MEDS: DILTIAZEM HCL 60 MG TAB PO SCH ×3 (10:52→23:53)
--- NOTE | 2018-02-11 14:08 | HHI.PR ---
Subjective Remarks Follow-up for acute pancreatitis, abdominal distention and pain, atrial fibrillation. Patient complains of significant abdominal distention and pain. His heart rate has been difficult to control with IV and p.o. medications. No fever or chills. Patient denies any chest pain. He has been able to tolerate clear liquid well. Objective Vitals Vital Signs Date Time Temp Pulse Resp B/P (MAP) Pulse Ox O2 Delivery O2 Flow Rate FiO2 02/11/18 12:07 95 Nasal Cannula 2.00 02/11/18 10:00 147 02/11/18 08:00 97 Nasal Cannula 2.00 02/11/18 08:00 154 02/11/18 08:00 97.6 154 38 97 02/11/18 06:34 98.8 155 20 130/79 (96) 93 02/11/18 05:28 22 02/11/18 04:00 98.9 110 19 156/72 (100) 99 02/11/18 00:00 98.9 116 19 163/74 (103) 96 02/10/18 20:39 20 02/10/18 20:00 99.1 121 19 170/94 (119) 93 02/10/18 18:37 120 24 152/80 (104) 97 Room Air 02/10/18 18:37 120 24 152/80 (104) 97 02/10/18 18:02 98.2 124 26 170/85 (113) 97 Room Air 02/10/18 16:35 98 Nasal Cannula 3.00 02/10/18 16:09 96 Nasal Cannula 2.00 02/10/18 16:03 98.5 127 18 163/78 (106) 94 I/O 02/10/18 02/10/18 02/10/18 02/11/18 02/11/18 02/11/18 07:00 15:00 23:00 07:00 15:00 23:00 Intake Total 2590 ml 240 ml Output Total 700 ml 300 ml Balance 1890 ml -60 ml Intake Oral 240 ml 240 ml IV Total 2350 ml Output Urine Total 700 ml 300 ml # Voids 3 # Bowel Movements 0 Result Diagram: 02/11/18 0246 02/11/18 0246 Imaging Last Impressions Chest X-Ray 02/10/18 1606 Signed Impressions: Service Date/Time: February 16:17 - CONCLUSION: Persistent, but decreasing size, left lower lobe consolidation. Porfirio Whitley MD Objective Remarks GENERAL: Alert, Oriented x 3, somewhat uncomfortable in bed. SKIN: Warm and dry. HEAD: Normocephalic. EYES: No scleral icterus. No injection or drainage. NECK: Supple, trachea midline. No JVD or lymphadenopathy. CARDIOVASCULAR: Tachycardic, irregularly irregular, gallops, or rubs. RESPIRATORY: Moderate air entry, tachypneic. No accessory muscle use. GASTROINTESTINAL: Abdomen is very distended and firm. BS+, mildly tender to palpation. MUSCULOSKELETAL: No cyanosis, or edema. BACK: Nontender without obvious deformity. No CVA tenderness. Procedures None. A/P Problem List: (1) Acute pancreatitis ICD Code: K85.90 - Acute pancreatitis without necrosis or infection, unspecified (2) Hypertension ICD Code: I10 - Essential (primary) hypertension (3) Diabetes mellitus ICD Code: E11.9 - Type 2 diabetes mellitus without complications Assessment and Plan Mr. Schaefer is a 47-year-old male with a history of hypertension, diabetes mellitus who was admitted to the hospital on 02/10/2018 due to increased abdominal pain and shortness of breath. Patient was originally admitted on 2017 due to acute pancreatitis. He was feeling better and thus left AGAINST MEDICAL ADVICE on 02/10/2018. Patient does not drink alcohol. In the previous hospitalization gallbladder ultrasound also was unremarkable. During his admission patient is found to have atrial fibrillation with RVR. He was started on amiodarone but his heart rate was not controlled. Acute pancreatitis Etiology unknown. CT abdomen pelvis on 02/10/2018 shows pancreatitis. Will check triglyceride levels today. We will also check IgG4 level to rule out autoimmune pancreatitis. Gallbladder ultrasound was unremarkable. I believe patient would benefit from a GI evaluation which was not in the previous admission. Atrial fibrillation with RVR Patient was started on amiodarone. Will discontinue amiodarone Patient's abdominal distention and pain as well as acute pancreatitis probably the driving force for A. fib with RVR. Could not initiate diltiazem drip due to lack of this medications in the hospital right now. We will continue to provide metoprolol IV and p.o. as well as diltiazem p.o. Start patient on esmolol drip to control heart rate. Abdominal distention Possible abdominal compartment syndrome Patient's abdominal exam is concerning for abdominal compartment syndrome. Discussed with nursing staff at length. Will insert Castro catheter and obtain intra-abdominal pressure. Will obtain a general surgery consult for evaluation as well. Probable Left lower lobe pneumonia Patient is currently on cefepime 2 g every 12 hours and azithromycin 500 mg daily IV. Diabetes mellitus -start Levemir 10 units nightly and continue sliding scale insulin. Hypertension -currently on amlodipine 2.5 mg daily. Total critical care time spent over 35 minutes. Full code. Roshan. Belgica Cervantes DO Feb 11, 2018 2:08 pm
--- NOTE | 2018-02-11 14:13 | RADRPT ---
EXAM DATE/TIME: 02/11/2018 12:52 [facility] COMPARISON: CT ABDOMEN & PELVIS W CONTRAST, February 07, 2018, 16:51. INDICATIONS : Distention. Severe shortness of breath. MEDICAL HISTORY : Hypertension. Diabetes mellitus type II. SURGICAL HISTORY : None. ENCOUNTER: Subsequent ACUITY: 4 - 6 days PAIN SCORE: 0/10 LOCATION: Abdomen. FINDINGS: Supine views of the abdomen were obtained. There are 2 focal loops of slightly prominent air-filled s mall bowel in the midabdomen measuring up to 3.2 cm. Air is seen throughout the colon. There is no gr oss free air or pneumatosis although patient's body habitus limits overall evaluation. No abnormal ca lcifications. Osseous structures are intact. CONCLUSION: 1. Limited focal loops of slightly prominent small bowel in the mid-abdomen consistent with developin g adynamic ileus. Eddie Nickerson MD on February 11, 2018 at 14:09 Board Certified Radiologist. This report was verified electronically.
[2018-02-11] MEDS: METOPROLOL TARTRATE 25 MG TAB PO SCH ×2 (14:41→20:37)
[2018-02-11] MEDS: ESMOLOL DRIP INJ PREMIX 250 ML IV PRN ×5 (15:43→23:51)
[2018-02-11] MEDS: ENOXAPARIN SODIUM 40 MG/0.4 ML SYRINGE SQ SCH (17:14)
[2018-02-11] MEDS ORDERED: INSULIN DETEMIR 100 UNITS/ML VIAL SQ SCH (21:00)
[2018-02-12] VITALS (9 sets, daily range): BP systolic 104–151; BP diastolic 56–79; PULSE 92–118; RESP 31–37; TEMP 97.4–98.4; O2SAT 91–99
[2018-02-12] MEDS: ESMOLOL DRIP INJ PREMIX 250 ML IV PRN ×5 (01:29→14:52)
[2018-02-12] MEDS: MORPHINE SULFATE 4 MG/ML INJ IV PUSH PRN ×4 (01:54→22:54)
[2018-02-12] MEDS: CHLORHEXIDINE GLUCONATE 2 % 1 PACK (2 CLOTHS)(taper/protocol) TOPICAL SCH (04:00)
[2018-02-12] MEDS: CEFEPIME INJ 2,000 MG in SODIUM CHLORIDE 0.9% INJ 100 ML IV SCH ×2 (05:35→18:28)
[2018-02-12] MEDS: METOPROLOL TARTRATE 25 MG TAB PO SCH (05:41)
[2018-02-12] MEDS: DILTIAZEM HCL 60 MG TAB PO SCH ×4 (05:41→22:54)
[2018-02-12] MEDS: AZITHROMYCIN 250 MG TAB PO SCH (09:54)
[2018-02-12] MEDS: SODIUM CHLORIDE 0.9% FLUSH 10 ML FLUSH IV FLUSH SCH ×2 (09:55→22:54)
[2018-02-12] MEDS: INSULIN ASPART SUPPLEMENTAL SCALE SQ SCH ×4 (09:55→22:55)
--- NOTE | 2018-02-12 11:09 | PD.CARD.PN ---
Subjective Subjective Remarks Starting to feel better Had a bowel movement Heart rates a little better controlled On Esmolol drip SOB better, feels he can lay down without getting SOB Objective Medications Current Medications Medications (Trade) Dose Ordered Sig/Rigoberto Route Start Time Stop Time Status Last Admin (NS Flush) 2 ml UNSCH PRN IV FLUSH 02/10/18 17:45 (NS Flush) 2 ml BID IV FLUSH 02/10/18 21:00 02/12/18 09:55 (Narcan Inj) 0.4 mg UNSCH PRN IV PUSH 02/10/18 17:45 Cefepime HCl 2000 mg/Sodium Chloride 100 ml @ 200 mls/hr Q12H IV 02/11/18 06:00 02/11/18 17:14 (Zithromax) 500 mg DAILY PO 02/11/18 09:00 02/12/18 09:54 (Morphine Inj) 4 mg Q3H PRN IV PUSH 02/11/18 00:00 02/12/18 01:54 (D50w (Vial) Inj) 50 ml UNSCH PRN IV PUSH 02/11/18 00:00 (Glucagon Inj) 1 mg UNSCH PRN OTHER 02/11/18 00:00 (NovoLOG SUPPLEMENTAL SCALE) 1 ACHS SLIDING SCALE SQ 02/11/18 08:00 02/12/18 09:55 (Norvasc) 2.5 mg DAILY PO 02/11/18 09:00 02/11/18 07:34 (Pill Splitter) 1 ea UNSCH PRN OTHER 02/10/18 23:45 (Lopressor Inj) 5 mg Q5M PRN IV PUSH 02/11/18 05:45 02/11/18 14:41 Miscellaneous Information Patient in critical care unit? Ass... [id number] .[id number] 02/11/18 07:00 02/11/18 20:38 (Chlorhexidine 2% Cloth) 3 pack DAILY@04 TOPICAL 02/12/18 04:00 02/16/18 04:01 02/12/18 04:00 (Chlorhexidine 2% Cloth) 3 pack UNSCH PRN TOPICAL 02/11/18 07:00 02/16/18 06:49 (Cardizem) 60 mg Q6HR PO 02/11/18 12:00 02/12/18 05:41 (Lopressor) 25 mg Q8HR PO 02/11/18 14:00 02/12/18 05:41 (Levemir Inj) 10 units HS SQ 02/11/18 21:00 02/11/18 20:38 Esmolol HCl/ Sodium Chloride 250 ml @ 39.06 mls/ hr TITRATE PRN IV 02/11/18 14:00 02/12/18 09:54 (Lovenox Inj) 40 mg Q24H SQ 02/11/18 15:00 02/11/18 17:14 Vital Signs / I&O Vital Signs Date Time Temp Pulse Resp B/P (MAP) Pulse Ox O2 Delivery O2 Flow Rate FiO2 02/12/18 09:54 106 127/71 02/12/18 08:00 95 Nasal Cannula 2.00 02/12/18 05:41 129 02/12/18 04:00 98.2 116 35 112/72 (85) 99 02/12/18 01:29 109 93/58 02/12/18 00:00 98.4 118 34 104/56 (72) 91 02/11/18 23:51 112 112/60 02/11/18 22:44 103 117/69 02/11/18 20:43 122 117/69 02/11/18 20:00 106 20 117/69 (85) 93 02/11/18 19:15 102 117/69 02/11/18 19:02 111 117/69 02/11/18 19:00 94 Nasal Cannula 2.00 02/11/18 18:00 129 38 94 02/11/18 17:30 132 02/11/18 17:00 135 34 125/68 (87) 94 02/11/18 17:00 135 125/68 02/11/18 16:00 98.2 132 35 113/67 (82) 91 02/11/18 15:43 142 124/78 02/11/18 15:00 148 39 94 02/11/18 14:00 140 71 94 02/11/18 12:07 95 Nasal Cannula 2.00 02/11/18 12:00 98.4 135 39 121/74 (90) 95 I/O 02/11/1818 02/11/18 02/12/18 02/12/18 02/12/18 07:00 15:00 23:00 07:00 15:00 23:00 Intake Total 240 ml 2280 ml 1100 ml Output Total 300 ml 1650 ml 1000 ml Balance -60 ml 630 ml 100 ml Intake Oral 240 ml 1440 ml 1000 ml Oral Supplement 100 ml IV Total 840 ml Output Urine Total 300 ml 1650 ml 1000 ml # Voids 3 # Bowel Movements 0 1 0 Physical Exam GENERAL: NAD, AAOx3 SKIN: Warm and dry. HEAD: Atraumatic. Normocephalic. EYES: Pupils equal and round. No scleral icterus. No injection or drainage. ENT: No nasal bleeding or discharge. Mucous membranes pink and moist. NECK: Trachea midline. No JVD. CARDIOVASCULAR: Irregularly irregular RESPIRATORY: No accessory muscle use. Clear to auscultation. Breath sounds equal bilaterally. GASTROINTESTINAL: Abdomen soft, non-tender, mildly distended. Hepatic and splenic margins not palpable. MUSCULOSKELETAL: Extremities without clubbing, cyanosis, or edema. No obvious deformities. NEUROLOGICAL: Awake and alert. No obvious cranial nerve deficits. Motor grossly within normal limits. Five out of 5 muscle strength in the arms and legs. Normal speech. PSYCHIATRIC: Appropriate mood and affect; insight and judgment normal. Laboratory Laboratory Tests Test 02/12/18 05:11 Assessment and Plan Problem List: (1) New onset a-fib ICD Codes: I48.91 - Unspecified atrial fibrillation (2) Acute pancreatitis ICD Codes: K85.90 - Acute pancreatitis without necrosis or infection, unspecified (3) Hypertension ICD Codes: I10 - Essential (primary) hypertension (4) Diabetes mellitus ICD Codes: E11.9 - Type 2 diabetes mellitus without complications (5) Pneumonia ICD Codes: J18.9 - Pneumonia, unspecified organism Status: Acute Assessment and Plan 1) Acute pancreatitis per primary team Possible ileus due to pancreatitis, although may be resolving as patient feels better and had BM 2) New onset AFib Heart rates still elevated Will increase BB therapy Will wait to increase Cardizem due to questionable ileus Attempt to wean off Esmolol CHADSVASc = 2 (HTN, DM) Discussed anti-coagulation and agreeable to NOAC Would wait until after he's through acute illness to start 3) HTN Will DC Norvasc as he's on Cardizem for rate control Problem Qualifiers (1) Pneumonia: Qualified Codes: J18.1 - Lobar pneumonia, unspecified organism Cristian Diallo DO Feb 12, 2018 11:09
[2018-02-12] MEDS ORDERED: MAGNESIUM HYDROXIDE SUSP 30 ML CUP PO PRN (13:30)
[2018-02-12] MEDS ORDERED: BISACODYL 10 MG SUPP RECTAL PRN (13:30)
[2018-02-12] MEDS ORDERED: SENNOSIDES 8.6 MG TAB PO PRN (13:30)
[2018-02-12] MEDS: METOPROLOL TARTRATE 50 MG TAB PO SCH ×2 (13:35→22:54)
[2018-02-12] MEDS: ENOXAPARIN SODIUM 40 MG/0.4 ML SYRINGE SQ SCH (13:39)
--- NOTE | 2018-02-12 14:25 | HHI.PR ---
Subjective Remarks Follow-up for acute pancreatitis, abdominal distention and pain, atrial fibrillation. Patient is currently doing better. Abdominal pain is better. Afib is well controlled with esmolol drip. Objective Vitals Vital Signs Date Time Temp Pulse Resp B/P (MAP) Pulse Ox O2 Delivery O2 Flow Rate FiO2 02/12/18 12:13 103 112/69 02/12/18 09:54 106 127/71 02/12/18 08:00 95 Nasal Cannula 2.00 02/12/18 05:41 129 02/12/18 04:00 98.2 116 35 112/72 (85) 99 02/12/18 01:29 109 93/58 02/12/18 00:00 98.4 118 34 104/56 (72) 91 02/11/18 23:51 112 112/60 02/11/18 22:44 103 117/69 02/11/18 20:43 122 117/69 02/11/18 20:00 106 20 117/69 (85) 93 02/11/18 19:15 102 117/69 02/11/18 19:02 111 117/69 02/11/18 19:00 94 Nasal Cannula 2.00 02/11/18 18:00 129 38 94 02/11/18 17:30 132 02/11/18 17:00 135 34 125/68 (87) 94 02/11/18 17:00 135 125/68 02/11/18 16:00 98.2 132 35 113/67 (82) 91 02/11/18 15:43 142 124/78 02/11/18 15:00 148 39 94 I/O 02/11/18 02/11/18 02/11/18 02/12/18 02/12/18 02/12/18 07:00 15:00 23:00 07:00 15:00 23:00 Intake Total 240 ml 2280 ml 1100 ml Output Total 300 ml 1650 ml 1000 ml Balance -60 ml 630 ml 100 ml Intake Oral 240 ml 1440 ml 1000 ml Oral Supplement 100 ml IV Total 840 ml Output Urine Total 300 ml 1650 ml 1000 ml # Voids 3 # Bowel Movements 0 1 0 Result Diagram: 02/11/18 0246 02/11/18 0246 Objective Remarks GENERAL: Alert, Oriented x 3, somewhat uncomfortable in bed. SKIN: Warm and dry. HEAD: Normocephalic. EYES: No scleral icterus. No injection or drainage. NECK: Supple, trachea midline. No JVD or lymphadenopathy. CARDIOVASCULAR: Tachycardic, irregularly irregular, gallops, or rubs. RESPIRATORY: Moderate air entry, tachypneic. No accessory muscle use. GASTROINTESTINAL: Abdomen is very distended and firm. BS+, mildly tender to palpation. MUSCULOSKELETAL: No cyanosis, or edema. BACK: Nontender without obvious deformity. No CVA tenderness. Procedures None. A/P Problem List: (1) Acute pancreatitis ICD Code: K85.90 - Acute pancreatitis without necrosis or infection, unspecified (2) Hypertension ICD Code: I10 - Essential (primary) hypertension (3) Diabetes mellitus ICD Code: E11.9 - Type 2 diabetes mellitus without complications Assessment and Plan Mr. Schaefer is a 47-year-old male with a history of hypertension, diabetes mellitus who was admitted to the hospital on 02/10/2018 due to increased abdominal pain and shortness of breath. Patient was originally admitted on 2017 due to acute pancreatitis. He was feeling better and thus left AGAINST MEDICAL ADVICE on 02/10/2018. Patient does not drink alcohol. In the previous hospitalization gallbladder ultrasound also was unremarkable. During his admission patient is found to have atrial fibrillation with RVR. He was started on amiodarone but his heart rate was not controlled. Acute pancreatitis Etiology unknown. CT abdomen pelvis on 02/10/2018 shows pancreatitis. Will check triglyceride levels today. We will also check IgG4 level to rule out autoimmune pancreatitis. Gallbladder ultrasound was unremarkable. I believe patient would benefit from a GI evaluation which was not in the previous admission. Atrial fibrillation with RVR Patient's abdominal distention and pain as well as acute pancreatitis probably the driving force for A. fib with RVR. Could not initiate diltiazem drip due to lack of this medications in the hospital right now. We will continue to provide metoprolol IV and p.o. as well as diltiazem p.o. Appreciate Cardiology input. Cardizem and Metoprolol PO dosage increased to Cardizem 60mg Q6 and Metoprolol 50mg Q8h. currently on esmolol drip to control heart rate. Will try to wean off Esmolol drip. Will obtain an Echo. Patient has significant lower ext edema. Abdominal distention Possible abdominal compartment syndrome Patient's abdominal exam is concerning for abdominal compartment syndrome. Intra-abdominal pressure yesterday was 18 and today 10. No need to check it any further. Discussed with RN. Probable Left lower lobe pneumonia Patient is currently on cefepime 2 g every 12 hours and azithromycin 500 mg daily IV. Will switch to PO Levaquin when patient is transferred to the floor - hopefully tomorrow 02/13/2018. Diabetes mellitus - Increase Levemir from 10 --> 15 units nightly and continue sliding scale insulin. Hypertension - Currently normotensive. Full code. Lovenox. Belgica Cervantes DO Feb 12, 2018 2:25 pm
--- NOTE | 2018-02-12 17:59 | ECHRPT ---
Indication: sob/afib CONCLUSIONS Technically difficult study. The left ventricular systolic function is normal with an estimated ejection fraction in the range of 60-65%. Moderate concentric left ventricular hypertrophy. Trace mitral valve regurgitation. BP: 112 / 72 HR: 85 Rhythm: Atrial fibrillation MEASUREMENTS (Male / Female) Normal Values Technical Quality:Technically difficult study 2D ECHO LV Diastolic Diameter PLAX 4.6 cm 4.2 - 5.9 / 3.9 - 5.3 cm LV Systolic Diameter PLAX 3.1 cm IVS Diastolic Thickness 1.4 cm 0.6 - 1.0 / 0.6 - 0.9 cm LVPW Diastolic Thickness 1.4 cm 0.6 - 1.0 / 0.6 - 0.9 cm LV Relative Wall Thickness 0.6 RV Internal Dim ED PLAX 2.6 cm LVOT Diameter 2.3 cm LA Systolic Diameter LX 4.1 cm 3.0 - 4.0 / 2.7 - 3.8 cm DOPPLER PV Peak Velocity 140.0 cm/s PV Peak Gradient 7.8 mmHg FINDINGS LEFT VENTRICLE The left ventricular systolic function is normal with an estimated ejection fraction in the range of 60-65%. Normal left ventricular size. Moderate concentric left ventricular hypertrophy. This study was not technically sufficient to allow for evaluation of left ventricular diastolic func tion. RIGHT VENTRICLE The right ventricle was not well visualized. LEFT ATRIUM The left atrial size is mildly dilated. RIGHT ATRIUM The right atrium is not well visualized. ATRIAL SEPTUM The interatrial septum not well visualized. MITRAL VALVE Structurally normal mitral valve. Trace mitral valve regurgitation. No mitral valve stenosis. AORTIC VALVE Grossly normal TRICUSPID VALVE The tricuspid valve is not well visualized. Cristian Diallo DO (Electronically Signed) Final Date:12 February 2018 17:58
[2018-02-12] MEDS ORDERED: INSULIN DETEMIR 100 UNITS/ML VIAL SQ SCH (21:00)
[2018-02-13] VITALS (53 sets, daily range): BP systolic 121–171; BP diastolic 65–97; PULSE 86–139; RESP 8–47; TEMP 98–98.3; O2SAT 94–98
[2018-02-13] MEDS: MORPHINE SULFATE 4 MG/ML INJ IV PUSH PRN ×5 (01:55→22:05)
[2018-02-13] MEDS: CHLORHEXIDINE GLUCONATE 2 % 1 PACK (2 CLOTHS)(taper/protocol) TOPICAL SCH (04:00)
[2018-02-13] MEDS: CEFEPIME INJ 2,000 MG in SODIUM CHLORIDE 0.9% INJ 100 ML IV SCH ×2 (05:44→17:04)
[2018-02-13] MEDS: METOPROLOL TARTRATE 50 MG TAB PO SCH ×3 (05:45→22:03)
[2018-02-13] MEDS: DILTIAZEM HCL 60 MG TAB PO SCH ×2 (05:45→11:43)
[2018-02-13] MEDS: ESMOLOL DRIP INJ PREMIX 250 ML IV PRN ×4 (05:45→22:03)
[2018-02-13] MEDS: INSULIN ASPART SUPPLEMENTAL SCALE SQ SCH ×4 (08:00→21:00)
[2018-02-13] MEDS: AZITHROMYCIN 250 MG TAB PO SCH (08:46)
[2018-02-13] MEDS: SODIUM CHLORIDE 0.9% FLUSH 10 ML FLUSH IV FLUSH SCH ×2 (08:46→22:04)
--- NOTE | 2018-02-13 13:17 | PD.CARD.PN ---
Subjective Subjective Remarks Feels better Had a bowel movement Heart rates a little better controlled On Esmolol drip at 50 SOB better, feels he can lay down without getting SOB Objective Medications Current Medications Medications (Trade) Dose Ordered Sig/Rigoberto Route Start Time Stop Time Status Last Admin (NS Flush) 2 ml UNSCH PRN IV FLUSH 02/10/18 17:45 (NS Flush) 2 ml BID IV FLUSH 02/10/18 21:00 02/13/18 08:46 (Narcan Inj) 0.4 mg UNSCH PRN IV PUSH 02/10/18 17:45 Cefepime HCl 2000 mg/Sodium Chloride 100 ml @ 200 mls/hr Q12H IV 02/11/18 06:00 02/13/18 05:44 (Zithromax) 500 mg DAILY PO 02/11/18 09:00 02/13/18 08:46 (Morphine Inj) 4 mg Q3H PRN IV PUSH 02/11/18 00:00 02/13/18 05:43 (D50w (Vial) Inj) 50 ml UNSCH PRN IV PUSH 02/11/18 00:00 (Glucagon Inj) 1 mg UNSCH PRN OTHER 02/11/18 00:00 (NovoLOG SUPPLEMENTAL SCALE) 1 ACHS SLIDING SCALE SQ 02/11/18 08:00 02/13/18 11:50 (Pill Splitter) 1 ea UNSCH PRN OTHER 02/10/18 23:45 (Lopressor Inj) 5 mg Q5M PRN IV PUSH 02/11/18 05:45 02/11/18 14:41 Miscellaneous Information Patient in critical care unit? Ass... [id number] .XX 02/11/18 07:00 02/11/18 20:38 (Chlorhexidine 2% Cloth) 3 pack DAILY@04 TOPICAL 02/12/18 04:00 02/16/18 04:01 02/13/18 04:00 (Chlorhexidine 2% Cloth) 3 pack UNSCH PRN TOPICAL 02/11/18 07:00 02/16/18 06:49 (Cardizem) 60 mg Q6HR PO 02/11/18 12:00 02/13/18 11:43 Esmolol HCl/ Sodium Chloride 250 ml @ 39.06 mls/ hr TITRATE PRN IV 02/11/18 14:00 02/13/18 11:44 (Lovenox Inj) 40 mg Q24H SQ 02/11/18 15:00 02/12/18 13:39 (Lopressor) 50 mg Q8HR PO 02/12/18 14:00 02/13/18 13:12 (Milk Of Magnesia Liq) 30 ml Q12H PRN PO 02/12/18 13:30 (Senokot) 17.2 mg Q12H PRN PO 02/12/18 13:30 (Dulcolax Supp) 10 mg DAILY PRN RECTAL 02/12/18 13:30 (Lactulose Liq) 30 ml DAILY PRN PO 02/12/18 13:30 (Levemir Inj) 15 units HS SQ 02/12/18 21:00 02/12/18 21:00 Vital Signs / I&O Vital Signs Date Time Temp Pulse Resp B/P (MAP) Pulse Ox O2 Delivery O2 Flow Rate FiO2 02/13/18 11:44 115 146/79 02/13/18 08:00 98.0 86 35 165/84 (111) 95 02/13/18 08:00 94 Nasal Cannula 2.00 02/13/18 05:45 110 129/65 02/13/18 03:04 Nasal Cannula 2.00 02/13/18 03:00 97 24 121/87 (98) 96 02/13/18 02:00 86 35 95 02/13/18 01:00 89 47 96 02/13/18 00:00 98.0 91 34 125/87 (100) 98 02/12/18 23:01 106 31 151/65 (93) 94 02/12/18 23:00 111 151/65 02/12/18 22:00 100 36 134/68 (90) 96 02/12/18 21:00 95 34 143/74 (97) 94 02/12/18 20:00 97.4 107 32 128/75 (92) 95 02/12/18 20:00 94 Nasal Cannula 2.00 02/12/18 19:30 98 127/70 02/12/18 16:00 97.8 92 37 134/73 (93) 95 02/12/18 14:52 88 108/56 I/O 02/12/18 02/12/18 02/12/18 02/13/18 02/13/18 02/13/18 07:00 15:00 23:00 07:00 15:00 23:00 Intake Total 1100 ml 500 ml 2712 ml Output Total 1000 ml 500 ml 1200 ml Balance 100 ml 0 ml 1512 ml Intake Oral 1000 ml 400 ml 1400 ml Oral Supplement 100 ml IV Total 100 ml 1312 ml Output Urine Total 1000 ml 500 ml 1200 ml # Bowel Movements 0 0 Physical Exam GENERAL: NAD, AAOx3 SKIN: Warm and dry. HEAD: Atraumatic. Normocephalic. EYES: Pupils equal and round. No scleral icterus. No injection or drainage. ENT: No nasal bleeding or discharge. Mucous membranes pink and moist. NECK: Trachea midline. No JVD. CARDIOVASCULAR: Irregularly irregular RESPIRATORY: No accessory muscle use. Clear to auscultation. Breath sounds equal bilaterally. GASTROINTESTINAL: Abdomen soft, non-tender, mildly distended. Hepatic and splenic margins not palpable. MUSCULOSKELETAL: Extremities without clubbing, cyanosis, or edema. No obvious deformities. NEUROLOGICAL: Awake and alert. No obvious cranial nerve deficits. Motor grossly within normal limits. Five out of 5 muscle strength in the arms and legs. Normal speech. PSYCHIATRIC: Appropriate mood and affect; insight and judgment normal. Assessment and Plan Problem List: (1) New onset a-fib ICD Codes: I48.91 - Unspecified atrial fibrillation (2) Acute pancreatitis ICD Codes: K85.90 - Acute pancreatitis without necrosis or infection, unspecified (3) Hypertension ICD Codes: I10 - Essential (primary) hypertension (4) Diabetes mellitus ICD Codes: E11.9 - Type 2 diabetes mellitus without complications (5) Pneumonia ICD Codes: J18.9 - Pneumonia, unspecified organism Status: Acute Assessment and Plan 1) Acute pancreatitis per primary team Possible ileus due to pancreatitis, although may be resolving as patient feels better and had BM 2) New onset AFib Heart rates still elevated Will plan to increase Cardizem today as ileus appears to be resolved Attempt to wean off Esmolol CHADSVASc = 2 (HTN, DM) Discussed anti-coagulation and agreeable to NOAC Would wait until after he's through acute illness to start 3) HTN Will DC Norvasc as he's on Cardizem for rate control Problem Qualifiers (1) Pneumonia: Qualified Codes: J18.1 - Lobar pneumonia, unspecified organism Cristian Diallo DO Feb 13, 2018 13:17
[2018-02-13] MEDS ORDERED: DILTIAZEM HCL 30 MG TAB PO ONE (13:30)
--- NOTE | 2018-02-13 15:56 | RADRPT ---
EXAM DATE/TIME: 02/13/2018 14:28 [facility] COMPARISON: No previous studies available for comparison. INDICATIONS : Possible foreign body left AC area. MEDICAL HISTORY : Hypertension. Pancreatitis. Diabetes. Afib. Pneumonia. SURGICAL HISTORY : None. ENCOUNTER: Initial ACUITY: 1 day PAIN SCORE: 3/10 LOCATION: Left arm. AREA EVALUATED: Left anterior distal humerus to proximal forearm. FINDINGS: There is occlusive thrombus in the basilic vein from the mid humerus to the mid forearm. There is a q uestionable residual catheter within the thrombus but this is not definitively confirmed on ultrasoun d. The brachial and cephalic veins are compressible without thrombus. CONCLUSION: 1. Occlusive thrombus in the basilic vein from the mid humerus to the mid forearm with questionable r esidual catheter present. Onur Frias MD on February 13, 2018 at 15:51 Board Certified Radiologist. This report was verified electronically.
--- NOTE | 2018-02-13 16:20 | HHI.PR ---
Subjective Remarks Follow-up for acute pancreatitis, abdominal distention and pain, atrial fibrillation. Pt is sitting in his chair, no acute concerns. His abdominal discomfort is improving. Has not had any BM in two days. No fever, chills. Heart rate still high in the 120s and difficult to control. Weaning off esmolol has proven to be somewhat difficult. Objective Vitals Vital Signs Date Time Temp Pulse Resp B/P (MAP) Pulse Ox O2 Delivery O2 Flow Rate FiO2 02/13/18 12:00 98.3 86 35 139/83 (101) 95 02/13/18 11:44 115 146/79 02/13/18 08:00 98.0 86 35 165/84 (111) 95 02/13/18 08:00 94 Nasal Cannula 2.00 02/13/18 05:45 110 129/65 02/13/18 03:04 Nasal Cannula 2.00 02/13/18 03:00 97 24 121/87 (98) 96 02/13/18 02:00 86 35 95 02/13/18 01:00 89 47 96 02/13/18 00:00 98.0 91 34 125/87 (100) 98 02/12/18 23:01 106 31 151/65 (93) 94 02/12/18 23:00 111 151/65 02/12/18 22:00 100 36 134/68 (90) 96 02/12/18 21:00 95 34 143/74 (97) 94 02/12/18 20:00 97.4 107 32 128/75 (92) 95 02/12/18 20:00 94 Nasal Cannula 2.00 02/12/18 19:30 98 127/70 I/O 02/12/18 02/12/18 02/12/18 02/13/18 02/13/18 02/13/18 07:00 15:00 23:00 07:00 15:00 23:00 Intake Total 1100 ml 500 ml 2712 ml Output Total 1000 ml 500 ml 1200 ml Balance 100 ml 0 ml 1512 ml Intake Oral 1000 ml 400 ml 1400 ml Oral Supplement 100 ml IV Total 100 ml 1312 ml Output Urine Total 1000 ml 500 ml 1200 ml # Bowel Movements 0 0 Result Diagram: 02/11/18 0246 02/11/18 0246 Imaging Last Impressions Upper Extremity Ultrasound 02/13/18 0000 Signed Impressions: Service Date/Time: Tuesday, February 13, 2018 14:28 - CONCLUSION: 1. Occlusive thrombus in the basilic vein from the mid humerus to the mid forearm with questionable residual catheter present. Onur Frias MD Abdomen X-Ray 02/11/18 0000 Signed Impressions: Service Date/Time: Sunday, February 11, 2018 12:52 - CONCLUSION: 1. Limited focal loops of slightly prominent small bowel in the mid-abdomen consistent with developing adynamic ileus. Eddie Nickerson MD Chest X-Ray 02/10/18 1606 Signed Impressions: Service Date/Time: February 16:17 - CONCLUSION: Persistent, but decreasing size, left lower lobe consolidation. Porfirio Whitley MD Objective Remarks GENERAL: Alert, Oriented x 3, somewhat uncomfortable in bed. SKIN: Warm and dry. HEAD: Normocephalic. EYES: No scleral icterus. No injection or drainage. NECK: Supple, trachea midline. No JVD or lymphadenopathy. CARDIOVASCULAR: Tachycardic, irregularly irregular, gallops, or rubs. RESPIRATORY: Moderate air entry, tachypneic. No accessory muscle use. GASTROINTESTINAL: Abdomen is very distended and firm. BS+, mildly tender to palpation. MUSCULOSKELETAL: No cyanosis, or edema. BACK: Nontender without obvious deformity. No CVA tenderness. Procedures None. A/P Problem List: (1) Acute pancreatitis ICD Code: K85.90 - Acute pancreatitis without necrosis or infection, unspecified (2) Hypertension ICD Code: I10 - Essential (primary) hypertension (3) Diabetes mellitus ICD Code: E11.9 - Type 2 diabetes mellitus without complications Assessment and Plan Mr. Schaefer is a 47-year-old male with a history of hypertension, diabetes mellitus who was admitted to the hospital on 02/10/2018 due to increased abdominal pain and shortness of breath. Patient was originally admitted on 2017 due to acute pancreatitis. He was feeling better and thus left AGAINST MEDICAL ADVICE on 02/10/2018. Patient does not drink alcohol. In the previous hospitalization gallbladder ultrasound also was unremarkable. During his admission patient is found to have atrial fibrillation with RVR. He was started on amiodarone but his heart rate was not controlled. Acute pancreatitis Etiology unknown. CT abdomen pelvis on 02/10/2018 shows pancreatitis. Will check triglyceride levels today. We will also check IgG4 level to rule out autoimmune pancreatitis. Gallbladder ultrasound was unremarkable. GI follow up in the outpatient setting would be reasonable. Atrial fibrillation with RVR Patient's abdominal distention and pain as well as acute pancreatitis probably the driving force for A. fib with RVR. Could not initiate diltiazem drip due to lack of this medications in the hospital right now. We will continue to provide metoprolol IV and p.o. as well as diltiazem p.o. Appreciate Cardiology input. Cardizem 90mg Q6 and Metoprolol 50mg Q8h. currently on esmolol drip to control heart rate. Will try to wean off Esmolol drip. Will obtain an Echo. Patient has significant lower ext edema. Abdominal distention Possible abdominal compartment syndrome Patient's abdominal exam is concerning for abdominal compartment syndrome. Intra-abdominal pressure yesterday was 18 and today 10. No need to check it any further. Discussed with RN. Probable Left lower lobe pneumonia Patient is currently on cefepime 2 g every 12 hours and azithromycin 500 mg daily IV. Will switch to PO Levaquin when patient is transferred to the floor Cannot transfer to the floor due to esmolol drip. Diabetes mellitus - Increase Levemir from 15 --> 20 units nightly and continue sliding scale insulin. Hypertension - Currently normotensive. Full code. Roshan. Belgica Cervantes DO Feb 13, 2018 16:20
[2018-02-13] MEDS: ENOXAPARIN SODIUM 40 MG/0.4 ML SYRINGE SQ SCH (16:54)
[2018-02-13] MEDS: DILTIAZEM HCL 90 MG TAB PO SCH (17:08)
[2018-02-13] MEDS: INSULIN DETEMIR 100 UNITS/ML VIAL SQ SCH (21:00)
[2018-02-14] VITALS (47 sets, daily range): BP systolic 113–170; BP diastolic 69–97; PULSE 97–115; RESP 7–41; TEMP 97.5–98; O2SAT 92–97
[2018-02-14] MEDS: MORPHINE SULFATE 4 MG/ML INJ IV PUSH PRN ×3 (02:40→20:56)
[2018-02-14] MEDS: CHLORHEXIDINE GLUCONATE 2 % 1 PACK (2 CLOTHS)(taper/protocol) TOPICAL SCH (04:00)
[2018-02-14] MEDS: LACTULOSE SYRUP 20 GM/30 ML CUP PO PRN (06:35)
[2018-02-14] MEDS: ESMOLOL DRIP INJ PREMIX 250 ML IV PRN ×4 (06:36→21:35)
[2018-02-14] MEDS: DILTIAZEM HCL 90 MG TAB PO SCH ×5 (06:37→23:01)
[2018-02-14] MEDS: CEFEPIME INJ 2,000 MG in SODIUM CHLORIDE 0.9% INJ 100 ML IV SCH ×2 (06:37→17:37)
[2018-02-14] MEDS: METOPROLOL TARTRATE 50 MG TAB PO SCH ×4 (06:37→23:01)
[2018-02-14] MEDS: AZITHROMYCIN 250 MG TAB PO SCH (08:13)
[2018-02-14] MEDS: INSULIN ASPART SUPPLEMENTAL SCALE SQ SCH ×4 (08:23→20:40)
[2018-02-14] MEDS: SODIUM CHLORIDE 0.9% FLUSH 10 ML FLUSH IV FLUSH SCH ×2 (09:00→20:41)
--- NOTE | 2018-02-14 10:00 | MB ---
cc: Cristian Diallo DO DATE: 02/11/2018 REASON FOR CONSULTATION: Atrial fibrillation. HISTORY OF PRESENT ILLNESS: Randell Schaefer is a pleasant 47-year-old male who presented to [facility] Emergency Room on 02/10/2018 due to abdominal pain and shortness of breath. The patient was previously here on 02/07 and was diagnosed with pancreatitis. He started feeling better and so he left against medical advice because he was no longer having pain. He went home and he noted he was short of breath so he came back into the emergency room. Upon arriving back into the emergency room, he was noted to be in atrial fibrillation with rapid ventricular response. He has since been admitted to the hospital here to the ICU and in seeing him, he is currently hemodynamically stable without chest pain or shortness of breath. PAST MEDICAL HISTORY: 1. Type 2 diabetes. 2. Hypertension. PAST SURGICAL HISTORY: Denies. ALLERGIES: NAPROXEN. MEDICATIONS: 1. Norvasc 2.5 mg daily. 2. Lisinopril 2.5 mg daily. 3. Metformin 1000 mg b.i.d. 4. Farxiga 5 mg daily. 5. Glipizide 5 mg daily. FAMILY HISTORY: Denies sudden cardiac within the family. SOCIAL HISTORY: Denies alcohol, tobacco or drug abuse. REVIEW OF SYSTEMS: Fourteen systems were reviewed including osteopathic. Pertinent positives and negatives above, otherwise negative. PHYSICAL EXAMINATION: VITAL SIGNS: Temperature 98.9, heart rate 110, blood pressure 156/72, respirations 19, pulse oximetry 99% on room air. GENERAL: The patient appears well in no acute distress. Alert, awake and oriented x 3. HEENT: Extraocular muscles intact. Mucous membranes moist. NECK: Supple. No JVD at 45 degrees. No carotid bruits heard bilaterally. Carotid upstroke is brisk in nature. HEART: Irregularly irregular. Positive first and second heart sounds with no noted murmurs, gallops or rubs. LUNGS: Clear to auscultation bilaterally. No wheezes, rales or rhonchi. ABDOMEN: Obese, mildly tender, but no guarding noted. EXTREMITIES: Show no clubbing, cyanosis or edema. Femoral and distal pulses are intact bilaterally. NEUROLOGIC: No focal deficits. SKIN: Warm, dry and intact. OSTEOPATHIC: No kyphoscoliosis, lordosis or paraspinal tender points. LABORATORY DATA: Hemoglobin 14.6, hematocrit 44.1, platelets 222. Potassium 3.7, BUN 44, creatinine 1.43. Electrocardiogram (02/11/2018 at 0459) atrial fibrillation with rapid ventricular response, left axis deviation, nonspecific ST-T wave changes. IMPRESSIONS: 1. Pancreatitis of unknown cause. 2. Atrial fibrillation with rapid ventricular response, new onset, CHADS-VASc score 2. 3. Hypertension. 4. Diabetes mellitus. RECOMMENDATIONS: 1. Mr. Schaefer appears to have atrial fibrillation with rapid ventricular response which most likely led to his shortness of breath. 2. His rapid heart rate may have caused his shortness of breath, especially if he has diastolic dysfunction. We will check a 2-D echo to look at his overall left ventricular function, cardiac structure and possible valvulopathies. 3. We will attempt to control his heart rate with calcium channel and beta cale therapy. 4. He does have a CHADS-VASc score of 2 and most likely should be started on anticoagulation at some point, although my overall concern is with this pancreatitis. I would wait for him to get through his acute illness. 5. Further recommendations will be made based on hospital course. Thank you for allowing me to see Ranedll schaefer. If there are any questions, please do not hesitate to call. Cristian Diallo, VGP/rt , 09:35 PM , 10:06 PM
[2018-02-14] MEDS: ENOXAPARIN SODIUM 40 MG/0.4 ML SYRINGE SQ SCH (14:53)
--- NOTE | 2018-02-14 15:14 | PD.CARD.PN ---
Subjective Subjective Remarks Feels good Heart rates a little better controlled On Esmolol drip at 50 SOB better, feels he can lay down without getting SOB Objective Medications Current Medications Medications (Trade) Dose Ordered Sig/Rigoberto Route Start Time Stop Time Status Last Admin (NS Flush) 2 ml UNSCH PRN IV FLUSH 02/10/18 17:45 (NS Flush) 2 ml BID IV FLUSH 02/10/18 21:00 02/13/18 22:04 (Narcan Inj) 0.4 mg UNSCH PRN IV PUSH 02/10/18 17:45 Cefepime HCl 2000 mg/Sodium Chloride 100 ml @ 200 mls/hr Q12H IV 02/11/18 06:00 02/14/18 06:37 (Zithromax) 500 mg DAILY PO 02/11/18 09:00 02/14/18 08:13 (Morphine Inj) 4 mg Q3H PRN IV PUSH 02/11/18 00:00 02/14/18 06:37 (D50w (Vial) Inj) 50 ml UNSCH PRN IV PUSH 02/11/18 00:00 (Glucagon Inj) 1 mg UNSCH PRN OTHER 02/11/18 00:00 (NovoLOG SUPPLEMENTAL SCALE) 1 ACHS SLIDING SCALE SQ 02/11/18 08:00 02/14/18 12:39 (Pill Splitter) 1 ea UNSCH PRN OTHER 02/10/18 23:45 (Lopressor Inj) 5 mg Q5M PRN IV PUSH 02/11/18 05:45 02/11/18 14:41 Miscellaneous Information Patient in critical care unit? Ass... Q361D .XX 02/11/18 07:00 02/11/18 20:38 (Chlorhexidine 2% Cloth) 3 pack DAILY@04 TOPICAL 02/12/18 04:00 02/16/18 04:01 02/14/18 04:00 (Chlorhexidine 2% Cloth) 3 pack UNSCH PRN TOPICAL 02/11/18 07:00 02/16/18 06:49 Esmolol HCl/ Sodium Chloride 250 ml @ 39.06 mls/ hr TITRATE PRN IV 02/11/18 14:00 02/14/18 14:52 (Lovenox Inj) 40 mg Q24H SQ 02/11/18 15:00 02/14/18 14:53 (Lopressor) 50 mg Q8HR PO 02/12/18 14:00 02/14/18 14:00 (Milk Of Magnesia Liq) 30 ml Q12H PRN PO 02/12/18 13:30 (Senokot) 17.2 mg Q12H PRN PO 02/12/18 13:30 (Dulcolax Supp) 10 mg DAILY PRN RECTAL 02/12/18 13:30 (Lactulose Liq) 30 ml DAILY PRN PO 02/12/18 13:30 02/14/18 06:35 (Cardizem) 90 mg Q6HR PO 02/13/18 18:00 02/14/18 12:39 (Levemir Inj) 20 units HS SQ 02/13/18 21:00 02/13/18 21:00 Vital Signs / I&O Vital Signs Date Time Temp Pulse Resp B/P (MAP) Pulse Ox O2 Delivery O2 Flow Rate FiO2 02/14/18 14:52 111 170/85 02/14/18 12:00 98.0 107 22 146/80 (102) 96 02/14/18 12:00 107 31 123/84 (97) 02/14/18 11:45 105 31 02/14/18 11:30 102 32 133/84 (100) 02/14/18 11:15 104 32 02/14/18 11:00 110 32 145/85 (105) 02/14/18 10:45 104 30 02/14/18 10:31 115 38 137/97 (110) 02/14/18 10:30 115 40 02/14/18 10:15 102 35 95 02/14/18 10:00 103 25 148/80 (102) 94 02/14/18 09:45 99 32 94 02/14/18 09:30 99 32 143/79 (100) 94 02/14/18 09:15 98 32 94 02/14/18 09:00 99 32 129/80 (96) 94 02/14/18 08:45 98 30 94 02/14/18 08:31 98 32 152/76 (101) 95 02/14/18 08:30 101 32 95 02/14/18 08:15 97 41 92 02/14/18 08:12 100 127/88 02/14/18 08:00 100 24 113/82 (92) 95 4/9/18 08:00 102 31 127/88 (101) 95 18 07:22 96 Nasal Cannula 4.00 02/14/18 06:36 134 113/88 02/14/18 04:00 114 32 113/82 (92) 95 02/14/18 03:00 107 34 121/75 (90) 97 02/14/18 02:00 110 34 122/69 (86) 93 02/14/18 01:00 103 33 137/82 (100) 94 02/14/18 00:01 108 28 133/72 (92) 92 02/13/18 23:01 97 26 151/74 (99) 95 02/13/18 23:00 102 30 95 02/13/18 22:03 111 138/70 02/13/18 22:00 108 30 138/70 (92) 95 02/13/18 21:30 108 35 140/74 (96) 94 18 21:00 101 35 132/80 (97) 94 18 20:30 100 36 123/80 (94) 96 18 20:00 100 37 133/70 (91) 96 18 20:00 94 Nasal Cannula 2.00 18 19:06 95 Nasal Cannula 4.00 18 18:35 101 138/89 18 18:30 113 29 94 18 18:15 108 33 94 18 18:01 117 32 171/70 (103) 95 18 18:00 98.3 125 22 171/70 (103) 97 18 18:00 104 27 95 18 17:45 106 32 95 18 17:30 111 34 156/77 (103) 94 18 17:15 120 31 95 18 17:00 117 35 141/76 (97) 95 18 16:45 114 38 96 18 16:30 104 36 127/73 (91) 95 18 16:15 107 36 96 18 16:00 107 34 122/75 (91) 95 18 15:45 107 36 95 18 15:30 103 38 132/72 (92) 95 02/13/18 15:15 105 40 95 I/O 02/13/18 02/13/18 02/13/18 02/14/18 02/14/18 02/14/18 07:00 15:00 23:00 07:00 15:00 23:00 Intake Total 2712 ml 520 ml 1200 ml Output Total 1200 ml 1450 ml 1200 ml Balance 1512 ml -930 ml 0 ml Intake Oral 1400 ml 420 ml 1200 ml IV Total 1312 ml 100 ml Output Urine Total 1200 ml 1450 ml 1200 ml # Bowel Movements 0 Physical Exam GENERAL: NAD, AAOx3 SKIN: Warm and dry. HEAD: Atraumatic. Normocephalic. EYES: Pupils equal and round. No scleral icterus. No injection or drainage. ENT: No nasal bleeding or discharge. Mucous membranes pink and moist. NECK: Trachea midline. No JVD. CARDIOVASCULAR: Irregularly irregular RESPIRATORY: No accessory muscle use. Clear to auscultation. Breath sounds equal bilaterally. GASTROINTESTINAL: Abdomen soft, non-tender, mildly distended. Hepatic and splenic margins not palpable. MUSCULOSKELETAL: Extremities without clubbing, cyanosis, or edema. No obvious deformities. NEUROLOGICAL: Awake and alert. No obvious cranial nerve deficits. Motor grossly within normal limits. Five out of 5 muscle strength in the arms and legs. Normal speech. PSYCHIATRIC: Appropriate mood and affect; insight and judgment normal. Assessment and Plan Problem List: (1) New onset a-fib ICD Codes: I48.91 - Unspecified atrial fibrillation (2) Acute pancreatitis ICD Codes: K85.90 - Acute pancreatitis without necrosis or infection, unspecified (3) Hypertension ICD Codes: I10 - Essential (primary) hypertension (4) Diabetes mellitus ICD Codes: E11.9 - Type 2 diabetes mellitus without complications (5) Pneumonia ICD Codes: J18.9 - Pneumonia, unspecified organism Status: Acute Assessment and Plan 1) Acute pancreatitis per primary team 2) New onset AFib Heart rates still elevated Will plan to increase meds Attempt to wean off Esmolol May need to have BERTRAM with CV on Wednesday if heart rates not better CHADSVASc = 2 (HTN, DM) Discussed anti-coagulation and agreeable to NOAC Would wait until after he's through acute illness to start 3) HTN Will DC Norvasc as he's on Cardizem for rate control Problem Qualifiers (1) Pneumonia: Qualified Codes: J18.1 - Lobar pneumonia, unspecified organism Cristian Diallo DO Feb 14, 2018 15:14
--- NOTE | 2018-02-14 15:24 | PD.CAR.PN ---
CVT Progress Note Subjective/Hospital Course: 47-year-old male with acute pancreatitis and a cardiac issues including supraventricular arrhythmias. Superficial DVT of the left basilic vein and on ultrasound questionable foreign body in the form of a very tiny remnant of the Angiocath. On exam both arms is swollen and patient has extensive third space anasarca, notable in both arms Basilic vein cannot even be palpated considering the amount of swelling in both arms I reviewed the ultrasound and while there is a clot in the basilic vein I am not quite sure that there is any part of the Angiocath in there. Regardless, superficial venous thrombosis is at this point of no clinical consequence does not need heparinization or any other type of anticoagulation in can be treated in the context of systemic care including gradual mobilization of fluid and reestablishment of euvolemia. Do not plan on any surgical therapy at this time. Objective: Vital Signs Date Time Temp Pulse Resp B/P (MAP) Pulse Ox O2 Delivery O2 Flow Rate FiO2 02/14/18 14:52 111 170/85 02/14/18 12:00 98.0 107 22 146/80 (102) 96 02/14/18 12:00 107 31 123/84 (97) 02/14/18 11:45 105 31 02/14/18 11:30 102 32 133/84 (100) 02/14/18 11:15 104 32 02/14/18 11:00 110 32 145/85 (105) 02/14/18 10:45 104 30 02/14/18 10:31 115 38 137/97 (110) 02/14/18 10:30 115 40 02/14/18 10:15 102 35 95 02/14/18 10:00 103 25 148/80 (102) 94 02/14/18 09:45 99 32 94 02/14/18 09:30 99 32 143/79 (100) 94 02/14/18 09:15 98 32 94 02/14/18 09:00 99 32 129/80 (96) 94 02/14/18 08:45 98 30 94 02/14/18 08:31 98 32 152/76 (101) 95 02/14/18 08:30 101 32 95 02/14/18 08:15 97 41 92 02/14/18 08:12 100 127/88 02/14/18 08:00 100 24 113/82 (92) 95 02/14/18 08:00 102 31 127/88 (101) 95 18 07:22 96 Nasal Cannula 4.00 02/14/18 06:36 134 113/88 02/14/18 04:00 114 32 113/82 (92) 95 02/14/18 03:00 107 34 121/75 (90) 97 02/14/18 02:00 110 34 122/69 (86) 93 02/14/18 01:00 103 33 137/82 (100) 94 02/14/18 00:01 108 28 133/72 (92) 92 02/13/18 23:01 97 26 151/74 (99) 95 02/13/18 23:00 102 30 95 02/13/18 22:03 111 138/70 02/13/18 22:00 108 30 138/70 (92) 95 02/13/18 21:30 108 35 140/74 (96) 94 02/13/18 21:00 101 35 132/80 (97) 94 18 20:30 100 36 123/80 (94) 96 18 20:00 100 37 133/70 (91) 96 18 20:00 94 Nasal Cannula 2.00 02/13/18 19:06 95 Nasal Cannula 4.00 18 18:35 101 138/89 18 18:30 113 29 94 18 18:15 108 33 94 18 18:01 117 32 171/70 (103) 95 18 18:00 98.3 125 22 171/70 (103) 97 18 18:00 104 27 95 18 17:45 106 32 95 18 17:30 111 34 156/77 (103) 94 18 17:15 120 31 95 18 17:00 117 35 141/76 (97) 95 18 16:45 114 38 96 18 16:30 104 36 127/73 (91) 95 18 16:15 107 36 96 18 16:00 107 34 122/75 (91) 95 18 15:45 107 36 95 18 15:30 103 38 132/72 (92) 95 Result Diagram: 02/11/18 0246 02/11/18 0246 (1) New onset a-fib (2) Acute pancreatitis (3) Hypertension (4) Diabetes mellitus (5) Pneumonia Problem Qualifiers (1) Pneumonia: Qualified Codes: J18.1 - Lobar pneumonia, unspecified organism Kala Ibanez MD Feb 14, 2018 15:24
--- NOTE | 2018-02-14 19:56 | HHI.PR ---
Subjective Remarks Follow-up for acute pancreatitis, abdominal distention and pain, atrial fibrillation. Sitting in the chair. Doing well. No acute concerns. Heart rate is better. No CP, SOB, fever, chills. Objective Vitals Vital Signs Date Time Temp Pulse Resp B/P (MAP) Pulse Ox O2 Delivery O2 Flow Rate FiO2 02/14/18 16:15 101 36 02/14/18 16:00 98 27 126/81 (96) 02/14/18 15:45 98 21 02/14/18 15:30 100 32 131/85 (100) 02/14/18 15:15 105 35 02/14/18 15:00 108 36 130/75 (93) 02/14/18 14:58 115 37 146/81 (102) 02/14/18 14:52 111 170/85 02/14/18 14:45 107 7 02/14/18 14:31 102 36 170/85 (113) 02/14/18 14:30 107 37 02/14/18 14:15 100 27 02/14/18 14:01 109 32 153/96 (115) 02/14/18 14:00 107 36 02/14/18 13:45 115 31 02/14/18 13:31 110 33 139/81 (100) 96 02/14/18 13:30 111 36 96 02/14/18 13:15 109 32 02/14/18 13:00 115 31 146/80 (102) 02/14/18 12:45 112 31 02/14/18 12:30 107 33 140/80 (100) 02/14/18 12:00 98.0 107 22 146/80 (102) 96 02/14/18 12:00 107 31 123/84 (97) 02/14/18 11:45 105 31 02/14/18 11:30 102 32 133/84 (100) 02/14/18 11:15 104 32 02/14/18 11:00 110 32 145/85 (105) 02/14/18 10:45 104 30 02/14/18 10:31 115 38 137/97 (110) 02/14/18 10:30 115 40 02/14/18 10:15 102 35 95 02/14/18 10:00 103 25 148/80 (102) 94 02/14/18 09:45 99 32 94 02/14/18 09:30 99 32 143/79 (100) 94 02/14/18 09:15 98 32 94 02/14/18 09:00 99 32 129/80 (96) 94 02/14/18 08:45 98 30 94 02/14/18 08:31 98 32 152/76 (101) 95 02/14/18 08:30 101 32 95 02/14/18 08:15 97 41 92 02/14/18 08:12 100 127/88 02/14/18 08:00 100 24 113/82 (92) 95 02/14/18 08:00 102 31 127/88 (101) 95 02/14/18 07:22 96 Nasal Cannula 4.00 02/14/18 06:36 134 113/88 02/14/18 04:00 114 32 113/82 (92) 95 02/14/18 03:00 107 34 121/75 (90) 97 02/14/18 02:00 110 34 122/69 (86) 93 02/14/18 01:00 103 33 137/82 (100) 94 02/14/18 00:01 108 28 133/72 (92) 92 02/13/18 23:01 97 26 151/74 (99) 95 02/13/18 23:00 102 30 95 02/13/18 22:03 111 138/70 02/13/18 22:00 108 30 138/70 (92) 95 02/13/18 21:30 108 35 140/74 (96) 94 02/13/18 21:00 101 35 132/80 (97) 94 02/13/18 20:30 100 36 123/80 (94) 96 02/13/18 20:00 100 37 133/70 (91) 96 02/13/18 20:00 94 Nasal Cannula 2.00 I/O 02/13/18 02/13/18 02/13/18 02/14/18 02/14/18 02/14/18 07:00 15:00 23:00 07:00 15:00 23:00 Intake Total 2712 ml 520 ml 1200 ml 1450 ml Output Total 1200 ml 1450 ml 1200 ml 1450 ml Balance 1512 ml -930 ml 0 ml 0 ml Intake Oral 1400 ml 420 ml 1200 ml 1450 ml IV Total 1312 ml 100 ml Output Urine Total 1200 ml 1450 ml 1200 ml 1450 ml # Bowel Movements 0 3 Result Diagram: 02/11/18 0246 02/11/18 0246 Imaging Last Impressions Upper Extremity Ultrasound 02/13/18 0000 Signed Impressions: Service Date/Time: Tuesday, February 13, 2018 14:28 - CONCLUSION: 1. Occlusive thrombus in the basilic vein from the mid humerus to the mid forearm with questionable residual catheter present. Onur Frias MD Abdomen X-Ray 02/11/18 0000 Signed Impressions: Service Date/Time: Sunday, February 11, 2018 12:52 - CONCLUSION: 1. Limited focal loops of slightly prominent small bowel in the mid-abdomen consistent with developing adynamic ileus. Eddie Nickerson MD Chest X-Ray 02/10/18 1606 Signed Impressions: Service Date/Time: February 16:17 - CONCLUSION: Persistent, but decreasing size, left lower lobe consolidation. Porfirio Whitley MD Objective Remarks GENERAL: Alert, Oriented x 3, somewhat uncomfortable in bed. SKIN: Warm and dry. HEAD: Normocephalic. EYES: No scleral icterus. No injection or drainage. NECK: Supple, trachea midline. No JVD or lymphadenopathy. CARDIOVASCULAR: Tachycardic, irregularly irregular, gallops, or rubs. RESPIRATORY: Moderate air entry, tachypneic. No accessory muscle use. GASTROINTESTINAL: Abdomen is very distended and firm. BS+, mildly tender to palpation. MUSCULOSKELETAL: No cyanosis, or edema. BACK: Nontender without obvious deformity. No CVA tenderness. Procedures None. A/P Problem List: (1) Acute pancreatitis ICD Code: K85.90 - Acute pancreatitis without necrosis or infection, unspecified (2) Hypertension ICD Code: I10 - Essential (primary) hypertension (3) Diabetes mellitus ICD Code: E11.9 - Type 2 diabetes mellitus without complications Assessment and Plan Mr. Schaefer is a 47-year-old male with a history of hypertension, diabetes mellitus who was admitted to the hospital on 02/10/2018 due to increased abdominal pain and shortness of breath. Patient was originally admitted on 2017 due to acute pancreatitis. He was feeling better and thus left AGAINST MEDICAL ADVICE on 02/10/2018. Patient does not drink alcohol. In the previous hospitalization gallbladder ultrasound also was unremarkable. During his admission patient is found to have atrial fibrillation with RVR. He was started on amiodarone but his heart rate was not controlled. Acute pancreatitis Etiology unknown. CT abdomen pelvis on 02/10/2018 shows pancreatitis. We will also check IgG4 level to rule out autoimmune pancreatitis. Triglyceride 191. Gallbladder ultrasound was unremarkable. GI follow up in the outpatient setting would be reasonable. Atrial fibrillation with RVR Patient's abdominal distention and pain as well as acute pancreatitis probably the driving force for A. fib with RVR. Could not initiate diltiazem drip due to lack of this medications in the hospital right now. We will continue to provide metoprolol IV and p.o. as well as diltiazem p.o. Appreciate Cardiology input. Cardizem 90mg Q6 and Metoprolol 50mg Q8h. currently on esmolol drip to control heart rate. Will try to wean off Esmolol drip. Echo - technically difficult study. Normal EF. Abdominal distention Possible abdominal compartment syndrome Patient's abdominal exam is concerning for abdominal compartment syndrome. Intra-abdominal pressure 18 -->10. No need to check it any further. Discussed with RN. Probable Left lower lobe pneumonia Patient is currently on cefepime 2 g every 12 hours and azithromycin 500 mg daily IV. Will switch to PO Levaquin when patient is transferred to the floor Cannot transfer to the floor due to esmolol drip. Diabetes mellitus - Increased Levemir from 15 --> 20 units nightly and continue sliding scale insulin. Hypertension - Currently normotensive. Full code. Roshan. Belgica Cervantes DO Feb 14, 2018 19:56
[2018-02-14] MEDS: INSULIN DETEMIR 100 UNITS/ML VIAL SQ SCH (20:41)
[2018-02-15] VITALS (9 sets, daily range): BP systolic 120–158; BP diastolic 72–89; PULSE 66–75; RESP 8–33; TEMP 98–99; O2SAT 94–98
[2018-02-15] MEDS: MORPHINE SULFATE 4 MG/ML INJ IV PUSH PRN ×5 (00:24→22:21)
[2018-02-15] MEDS: CHLORHEXIDINE GLUCONATE 2 % 1 PACK (2 CLOTHS)(taper/protocol) TOPICAL SCH (04:00)
[2018-02-15] MEDS: ESMOLOL DRIP INJ PREMIX 250 ML IV PRN (04:10)
[2018-02-15] MEDS: DILTIAZEM HCL 90 MG TAB PO SCH ×3 (05:49→17:31)
[2018-02-15] MEDS: CEFEPIME INJ 2,000 MG in SODIUM CHLORIDE 0.9% INJ 100 ML IV SCH ×2 (05:49→17:31)
[2018-02-15] MEDS: METOPROLOL TARTRATE 50 MG TAB PO SCH ×3 (05:49→17:31)
[2018-02-15] MEDS: AZITHROMYCIN 250 MG TAB PO SCH (09:20)
[2018-02-15] MEDS: INSULIN ASPART SUPPLEMENTAL SCALE SQ SCH ×4 (09:44→20:20)
--- NOTE | 2018-02-15 09:44 | PD.CARD.PN ---
Subjective Subjective Remarks Feels good Converted to sinus rhythm Objective Medications Current Medications Medications (Trade) Dose Ordered Sig/Rigoberto Route Start Time Stop Time Status Last Admin (NS Flush) 2 ml UNSCH PRN IV FLUSH 02/10/18 17:45 (NS Flush) 2 ml BID IV FLUSH 02/10/18 21:00 02/14/18 20:41 (Narcan Inj) 0.4 mg UNSCH PRN IV PUSH 02/10/18 17:45 Cefepime HCl 2000 mg/Sodium Chloride 100 ml @ 200 mls/hr Q12H IV 02/11/18 06:00 02/15/18 05:49 (Zithromax) 500 mg DAILY PO 02/11/18 09:00 02/14/18 08:13 (Morphine Inj) 4 mg Q3H PRN IV PUSH 02/11/18 00:00 02/15/18 03:23 (D50w (Vial) Inj) 50 ml UNSCH PRN IV PUSH 02/11/18 00:00 (Glucagon Inj) 1 mg UNSCH PRN OTHER 02/11/18 00:00 (NovoLOG SUPPLEMENTAL SCALE) 1 ACHS SLIDING SCALE SQ 02/11/18 08:00 02/14/18 20:40 (Pill Splitter) 1 ea UNSCH PRN OTHER 02/10/18 23:45 (Lopressor Inj) 5 mg Q5M PRN IV PUSH 02/11/18 05:45 02/11/18 14:41 Miscellaneous Information Patient in critical care unit? Ass... Q361D .XX 02/11/18 07:00 02/11/18 20:38 (Chlorhexidine 2% Cloth) 3 pack DAILY@04 TOPICAL 02/12/18 04:00 02/16/18 04:01 02/14/18 04:00 (Chlorhexidine 2% Cloth) 3 pack UNSCH PRN TOPICAL 02/11/18 07:00 02/16/18 06:49 Esmolol HCl/ Sodium Chloride 250 ml @ 39.06 mls/ hr TITRATE PRN IV 02/11/18 14:00 02/15/18 04:10 (Lovenox Inj) 40 mg Q24H SQ 02/11/18 15:00 02/14/18 14:53 (Milk Of Magnesia Liq) 30 ml Q12H PRN PO 02/12/18 13:30 (Senokot) 17.2 mg Q12H PRN PO 02/12/18 13:30 (Dulcolax Supp) 10 mg DAILY PRN RECTAL 02/12/18 13:30 (Lactulose Liq) 30 ml DAILY PRN PO 02/12/18 13:30 02/14/18 06:35 (Cardizem) 90 mg Q6HR PO 02/13/18 18:00 02/15/18 05:49 (Levemir Inj) 20 units HS SQ 02/13/18 21:00 02/14/18 20:41 (Lopressor) 50 mg Q6HR PO 02/14/18 18:00 02/15/18 05:49 Vital Signs / I&O Vital Signs Date Time Temp Pulse Resp B/P (MAP) Pulse Ox O2 Delivery O2 Flow Rate FiO2 02/15/18 08:53 96 Nasal Cannula 4.00 02/15/18 04:10 69 120/72 02/15/18 04:09 69 120/72 02/15/18 04:00 99.0 69 23 120/72 (88) 97 02/15/18 03:28 20 02/15/18 00:05 97 Nasal Cannula 5.00 02/15/18 00:00 98.0 73 27 136/82 (100) 94 02/14/18 21:35 91 119/73 02/14/18 21:00 95 Nasal Cannula 5.00 02/14/18 20:00 97.5 99 26 95 02/14/18 19:00 93 Nasal Cannula 2.00 02/14/18 16:15 101 36 02/14/18 16:00 98 27 126/81 (96) 02/14/18 15:45 98 21 02/14/18 15:30 100 32 131/85 (100) 02/14/18 15:15 105 35 02/14/18 15:00 108 36 130/75 (93) 02/14/18 14:58 115 37 146/81 (102) 02/14/18 14:52 111 170/85 02/14/18 14:45 107 7 02/14/18 14:31 102 36 170/85 (113) 02/14/18 14:30 107 37 02/14/18 14:15 100 27 02/14/18 14:01 109 32 153/96 (115) 02/14/18 14:00 107 36 02/14/18 13:45 115 31 02/14/18 13:31 110 33 139/81 (100) 96 02/14/18 13:30 111 36 96 02/14/18 13:15 109 32 02/14/18 13:00 115 31 146/80 (102) 02/14/18 12:45 112 31 02/14/18 12:30 107 33 140/80 (100) 02/14/18 12:00 98.0 107 22 146/80 (102) 96 02/14/18 12:00 107 31 123/84 (97) 02/14/18 11:45 105 31 02/14/18 11:30 102 32 133/84 (100) 02/14/18 11:15 104 32 02/14/18 11:00 110 32 145/85 (105) 02/14/18 10:45 104 30 02/14/18 10:31 115 38 137/97 (110) 02/14/18 10:30 115 40 02/14/18 10:15 102 35 95 02/14/18 10:00 103 25 148/80 (102) 94 02/14/18 09:45 99 32 94 I/O 02/14/18 02/14/18 02/14/18 02/15/18 02/15/18 02/15/18 07:00 15:00 23:00 07:00 15:00 23:00 Intake Total 1200 ml 1700 ml 1250 ml Output Total 1200 ml 1450 ml 575 ml Balance 0 ml 250 ml 675 ml Intake Oral 1200 ml 1450 ml 1000 ml IV Total 250 ml 250 ml Output Urine Total 1200 ml 1450 ml 575 ml # Bowel Movements 3 1 Physical Exam GENERAL: NAD, AAOx3 SKIN: Warm and dry. HEAD: Atraumatic. Normocephalic. EYES: Pupils equal and round. No scleral icterus. No injection or drainage. ENT: No nasal bleeding or discharge. Mucous membranes pink and moist. NECK: Trachea midline. No JVD. CARDIOVASCULAR: RRR RESPIRATORY: No accessory muscle use. Clear to auscultation. Breath sounds equal bilaterally. GASTROINTESTINAL: Abdomen soft, non-tender, mildly distended. Hepatic and splenic margins not palpable. MUSCULOSKELETAL: Extremities without clubbing, cyanosis, or edema. No obvious deformities. NEUROLOGICAL: Awake and alert. No obvious cranial nerve deficits. Motor grossly within normal limits. Five out of 5 muscle strength in the arms and legs. Normal speech. PSYCHIATRIC: Appropriate mood and affect; insight and judgment normal. Assessment and Plan Problem List: (1) New onset a-fib ICD Codes: I48.91 - Unspecified atrial fibrillation (2) Acute pancreatitis ICD Codes: K85.90 - Acute pancreatitis without necrosis or infection, unspecified (3) Hypertension ICD Codes: I10 - Essential (primary) hypertension (4) Diabetes mellitus ICD Codes: E11.9 - Type 2 diabetes mellitus without complications (5) Pneumonia ICD Codes: J18.9 - Pneumonia, unspecified organism Status: Acute Assessment and Plan 1) Acute pancreatitis per primary team 2) New onset AFib Converted to NSR Attempt to wean off Esmolol CHADSVASc = 2 (HTN, DM) Discussed anti-coagulation and agreeable to NOAC Plan to start Eliquis 5mg BID 3) HTN Will DC Norvasc as he's on Cardizem for rate control Problem Qualifiers (1) Pneumonia: Qualified Codes: J18.1 - Lobar pneumonia, unspecified organism Cristian Diallo DO Feb 15, 2018 09:44
[2018-02-15] MEDS: SODIUM CHLORIDE 0.9% FLUSH 10 ML FLUSH IV FLUSH SCH ×2 (09:45→20:19)
[2018-02-15] MEDS: APIXABAN 5 MG TABLET PO SCH ×2 (12:45→20:19)
[2018-02-15] MEDS: INSULIN DETEMIR 100 UNITS/ML VIAL SQ SCH ×2 (20:20→21:00)
--- NOTE | 2018-02-15 20:47 | HHI.PR ---
Subjective Remarks Follow-up for acute pancreatitis, abdominal distention and pain, atrial fibrillation. Patient's rhythm converted to NSR. Currently doing well. No acute concerns. Objective Vitals Vital Signs Date Time Temp Pulse Resp B/P (MAP) Pulse Ox O2 Delivery O2 Flow Rate FiO2 02/15/18 16:00 98.7 72 33 146/81 (102) 98 02/15/18 12:00 98.3 74 8 158/89 (112) 96 02/15/18 10:15 71 147/79 02/15/18 09:45 68 122/70 02/15/18 08:53 96 Nasal Cannula 4.00 02/15/18 08:00 98.0 66 28 120/73 (89) 97 02/15/18 07:00 97 Nasal Cannula 2.00 02/15/18 04:10 69 120/72 02/15/18 04:09 69 120/72 02/15/18 04:00 99.0 69 23 120/72 (88) 97 02/15/18 03:28 20 02/15/18 00:05 97 Nasal Cannula 5.00 02/15/18 00:00 98.0 73 27 136/82 (100) 94 02/14/18 21:35 91 119/73 02/14/18 21:00 95 Nasal Cannula 5.00 I/O 02/14/18 02/14/18 02/14/18 02/15/18 02/15/18 02/15/18 07:00 15:00 23:00 07:00 15:00 23:00 Intake Total 1200 ml 1700 ml 1250 ml 1400 ml Output Total 1200 ml 1450 ml 575 ml 900 ml Balance 0 ml 250 ml 675 ml 500 ml Intake Oral 1200 ml 1450 ml 1000 ml 1300 ml IV Total 250 ml 250 ml 100 ml Output Urine Total 1200 ml 1450 ml 575 ml 900 ml # Bowel Movements 3 1 Result Diagram: 02/11/186 02/11/18 0246 Objective Remarks GENERAL: Alert, Oriented x 3, somewhat uncomfortable in bed. SKIN: Warm and dry. HEAD: Normocephalic. EYES: No scleral icterus. No injection or drainage. NECK: Supple, trachea midline. No JVD or lymphadenopathy. CARDIOVASCULAR: Tachycardic, irregularly irregular, gallops, or rubs. RESPIRATORY: Moderate air entry, tachypneic. No accessory muscle use. GASTROINTESTINAL: Abdomen is very distended and firm. BS+, mildly tender to palpation. MUSCULOSKELETAL: No cyanosis. 2+ lower ext edema. Large cystic blisters present on both lower extremities. No surrounding erythema. BACK: Nontender without obvious deformity. No CVA tenderness. Procedures None. A/P Problem List: (1) Acute pancreatitis ICD Code: K85.90 - Acute pancreatitis without necrosis or infection, unspecified (2) Hypertension ICD Code: I10 - Essential (primary) hypertension (3) Diabetes mellitus ICD Code: E11.9 - Type 2 diabetes mellitus without complications Assessment and Plan Mr. Schaefer is a 47-year-old male with a history of hypertension, diabetes mellitus who was admitted to the hospital on 02/10/2018 due to increased abdominal pain and shortness of breath. Patient was originally admitted on 2017 due to acute pancreatitis. He was feeling better and thus left AGAINST MEDICAL ADVICE on 02/10/2018. Patient does not drink alcohol. In the previous hospitalization gallbladder ultrasound also was unremarkable. During his admission patient is found to have atrial fibrillation with RVR. He was started on amiodarone but his heart rate was not controlled. Acute pancreatitis Etiology unknown. CT abdomen pelvis on 02/10/2018 shows pancreatitis. IgG4 levels pending to rule out autoimmune pancreatitis. Triglyceride 191. Gallbladder ultrasound was unremarkable. GI follow up in the outpatient setting would be reasonable. Atrial fibrillation with RVR spontaneously converted to normal sinus rhythm Patient's abdominal distention and pain as well as acute pancreatitis probably the driving force for A. fib with RVR. We will continue Metoprolol as well as diltiazem p.o. Appreciate Cardiology input. Cardizem 90mg Q6 and Metoprolol 50mg Q8h. Patient is also on Apixaban. Echo - technically difficult study. Normal EF. Abdominal distention Possible abdominal compartment syndrome Patient's abdominal exam is concerning for abdominal compartment syndrome. Intra-abdominal pressure 18 -->10. Probable Left lower lobe pneumonia Patient is currently on cefepime 2 g every 12 hours and azithromycin 500 mg daily IV. Will switch to PO Levaquin when patient is transferred to the floor Diabetes mellitus - Increased Levemir from 20 --> 25 units nightly and continue sliding scale insulin. Hypertension - Currently normotensive. Full code. Apixaban. Belgica Cervantes DO Feb 15, 2018 20:47
[2018-02-16] VITALS (9 sets, daily range): BP systolic 119–170; BP diastolic 61–91; PULSE 72–87; RESP 16–41; TEMP 97.1–98.7; O2SAT 93–98
[2018-02-16] MEDS: METOPROLOL TARTRATE 50 MG TAB PO SCH ×4 (00:27→18:28)
[2018-02-16] MEDS: DILTIAZEM HCL 90 MG TAB PO SCH ×4 (00:27→18:28)
[2018-02-16] MEDS: CHLORHEXIDINE GLUCONATE 2 % 1 PACK (2 CLOTHS)(taper/protocol) TOPICAL SCH (04:00)
[2018-02-16] MEDS: CEFEPIME INJ 2,000 MG in SODIUM CHLORIDE 0.9% INJ 100 ML IV SCH (06:49)
[2018-02-16] MEDS: MORPHINE SULFATE 4 MG/ML INJ IV PUSH PRN ×4 (06:50→20:55)
[2018-02-16] MEDS: INSULIN ASPART 1,000 UNITS/10 ML VIAL SQ SCH ×3 (09:21→17:00)
[2018-02-16] MEDS: INSULIN ASPART SUPPLEMENTAL SCALE SQ SCH ×4 (09:21→20:56)
[2018-02-16] MEDS: AZITHROMYCIN 250 MG TAB PO SCH (09:22)
[2018-02-16] MEDS: SODIUM CHLORIDE 0.9% FLUSH 10 ML FLUSH IV FLUSH SCH ×2 (09:22→20:56)
[2018-02-16] MEDS: APIXABAN 5 MG TABLET PO SCH ×2 (09:22→20:55)
--- NOTE | 2018-02-16 13:55 | HHI.PR ---
Subjective Remarks Follow-up for acute pancreatitis, abdominal distention and pain, atrial fibrillation. Patient is currently doing well. No fever, chills. Still has lower ext blisters. Objective Vitals Vital Signs Date Time Temp Pulse Resp B/P (MAP) Pulse Ox O2 Delivery O2 Flow Rate FiO2 02/16/18 12:05 95 Nasal Cannula 2.00 02/16/18 12:00 79 31 170/91 (117) 98 02/16/18 08:00 97 Nasal Cannula 4.00 02/16/18 08:00 98.7 74 34 123/67 (85) 97 02/16/18 04:00 98.3 74 31 119/67 (84) 02/16/18 00:00 87 41 119/61 (80) 02/15/18 20:00 98.2 75 31 129/75 (93) 02/15/18 19:40 96 Nasal Cannula 4.00 02/15/18 19:00 96 Nasal Cannula 4.00 02/15/18 16:00 98.7 72 33 146/81 (102) 98 I/O 02/15/18 02/15/18 02/15/18 02/16/18 02/16/18 02/16/18 07:00 15:00 23:00 07:00 15:00 23:00 Intake Total 1250 ml 1400 ml 500 ml Output Total 575 ml 900 ml 1600 ml Balance 675 ml 500 ml -1100 ml Intake Oral 1000 ml 1300 ml 500 ml IV Total 250 ml 100 ml Output Urine Total 575 ml 900 ml 1600 ml # Bowel Movements 1 0 Objective Remarks GENERAL: Alert, Oriented x 3, somewhat uncomfortable in bed. SKIN: Warm and dry. HEAD: Normocephalic. EYES: No scleral icterus. No injection or drainage. NECK: Supple, trachea midline. No JVD or lymphadenopathy. CARDIOVASCULAR: Tachycardic, irregularly irregular, gallops, or rubs. RESPIRATORY: Moderate air entry, tachypneic. No accessory muscle use. GASTROINTESTINAL: Abdomen is very distended and firm. BS+, mildly tender to palpation. MUSCULOSKELETAL: No cyanosis. 2+ lower ext edema. Large cystic blisters present on both lower extremities. No surrounding erythema. BACK: Nontender without obvious deformity. No CVA tenderness. Procedures None. A/P Problem List: (1) Acute pancreatitis ICD Code: K85.90 - Acute pancreatitis without necrosis or infection, unspecified (2) Hypertension ICD Code: I10 - Essential (primary) hypertension (3) Diabetes mellitus ICD Code: E11.9 - Type 2 diabetes mellitus without complications Assessment and Plan Mr. Schaefer is a 47-year-old male with a history of hypertension, diabetes mellitus who was admitted to the hospital on 02/10/2018 due to increased abdominal pain and shortness of breath. Patient was originally admitted on 2017 due to acute pancreatitis. He was feeling better and thus left AGAINST MEDICAL ADVICE on 02/10/2018. Patient does not drink alcohol. In the previous hospitalization gallbladder ultrasound also was unremarkable. During his admission patient is found to have atrial fibrillation with RVR. He was started on amiodarone but his heart rate was not controlled. Acute pancreatitis Etiology unknown. CT abdomen pelvis on 02/10/2018 shows pancreatitis. IgG4 levels pending to rule out autoimmune pancreatitis. Triglyceride 191. Gallbladder ultrasound was unremarkable. GI follow up in the outpatient setting would be reasonable. Atrial fibrillation with RVR spontaneously converted to normal sinus rhythm Patient's abdominal distention and pain as well as acute pancreatitis probably the driving force for A. fib with RVR. We will continue Metoprolol as well as diltiazem p.o. Appreciate Cardiology input. Cardizem 90mg Q6 and Metoprolol 50mg Q8h. Patient is also on Apixaban. Echo - technically difficult study. Normal EF. Abdominal distention Possible abdominal compartment syndrome Patient's abdominal exam is concerning for abdominal compartment syndrome. Intra-abdominal pressure 18 -->10. Probable Left lower lobe pneumonia Patient is currently on cefepime 2 g every 12 hours and azithromycin 500 mg daily IV. Will switch to PO Levaquin - Patient is being transferred to the floor. Diabetes mellitus - Increased Levemir from 20 --> 25 units nightly and continue sliding scale insulin. Hypertension - Currently normotensive. Lower ext blisters - no surrounding erythema. They will likely resolve on their own. No intervention required. Keep legs elevated. PT consult. Probable discharge on 02/17/2018. Full code. Apixaban. Belgica Cervantes DO Feb 16, 2018 1:55 pm
[2018-02-16] MEDS: LACTULOSE SYRUP 20 GM/30 ML CUP PO PRN (20:55)
[2018-02-16] MEDS: INSULIN DETEMIR 100 UNITS/ML VIAL SQ SCH (20:56)
--- NOTE | 2018-02-16 23:32 | PD.CARD.PN ---
Subjective Subjective Remarks Patient was seen earlier today, late entry note Feels good Continues in sinus rhythm Up and ambulating without problem Objective Medications Current Medications Medications (Trade) Dose Ordered Sig/Rigoberto Route Start Time Stop Time Status Last Admin (NS Flush) 2 ml UNSCH PRN IV FLUSH 02/10/18 17:45 (NS Flush) 2 ml BID IV FLUSH 02/10/18 21:00 02/16/18 20:56 (Narcan Inj) 0.4 mg UNSCH PRN IV PUSH 02/10/18 17:45 (Morphine Inj) 4 mg Q3H PRN IV PUSH 02/11/18 00:00 02/16/18 20:55 (D50w (Vial) Inj) 50 ml UNSCH PRN IV PUSH 02/11/18 00:00 (Glucagon Inj) 1 mg UNSCH PRN OTHER 02/11/18 00:00 (NovoLOG SUPPLEMENTAL SCALE) 1 ACHS SLIDING SCALE SQ 02/11/18 08:00 02/16/18 20:56 (Pill Splitter) 1 ea UNSCH PRN OTHER 02/10/18 23:45 (Lopressor Inj) 5 mg Q5M PRN IV PUSH 02/11/18 05:45 02/11/18 14:41 Miscellaneous Information Patient in critical care unit? Ass... [id number] .XX 02/11/18 07:00 02/11/18 20:38 Esmolol HCl/ Sodium Chloride 250 ml @ 39.06 mls/ hr TITRATE PRN IV 02/11/18 14:00 02/15/18 04:10 (Milk Of Magnesia Liq) 30 ml Q12H PRN PO 02/12/18 13:30 (Senokot) 17.2 mg Q12H PRN PO 02/12/18 13:30 (Dulcolax Supp) 10 mg DAILY PRN RECTAL 02/12/18 13:30 (Lactulose Liq) 30 ml DAILY PRN PO 02/12/18 13:30 02/16/18 20:55 (Cardizem) 90 mg Q6HR PO 02/13/18 18:00 02/16/18 18:28 (Lopressor) 50 mg Q6HR PO 02/14/18 18:00 02/16/18 18:28 (Eliquis) 5 mg BID PO 02/15/18 11:00 02/16/18 20:55 (Levemir Inj) 25 units HS SQ 02/15/18 21:00 02/16/18 20:56 (NovoLOG INJ) 4 units TIDAC SQ 02/16/18 08:00 02/16/18 17:00 (Levaquin) 750 mg DAILY PO 02/17/18 09:00 02/20/18 08:59 Vital Signs / I&O Vital Signs Date Time Temp Pulse Resp B/P (MAP) Pulse Ox O2 Delivery O2 Flow Rate FiO2 02/16/18 20:00 97.1 78 18 137/74 (95) 93 02/16/18 17:00 96 Room Air 02/16/18 17:00 97.3 84 20 162/77 (105) 95 02/16/18 16:00 98.7 72 16 159/83 (108) 97 02/16/18 12:05 95 Nasal Cannula 2.00 02/16/18 12:00 79 31 170/91 (117) 98 02/16/18 08:00 97 Nasal Cannula 4.00 02/16/18 08:00 98.7 74 34 123/67 (85) 97 02/16/18 04:00 98.3 74 31 119/67 (84) 02/16/18 00:00 87 41 119/61 (80) I/O 02/16/18 02/16/18 02/16/18 02/17/18 02/17/18 02/17/18 07:00 15:00 23:00 07:00 15:00 23:00 Intake Total 500 ml Output Total 1600 ml Balance -1100 ml Intake Oral 500 ml Output Urine Total 1600 ml # Bowel Movements 0 Physical Exam GENERAL: NAD, AAOx3 SKIN: Warm and dry. HEAD: Atraumatic. Normocephalic. EYES: Pupils equal and round. No scleral icterus. No injection or drainage. ENT: No nasal bleeding or discharge. Mucous membranes pink and moist. NECK: Trachea midline. No JVD. CARDIOVASCULAR: RRR RESPIRATORY: No accessory muscle use. Clear to auscultation. Breath sounds equal bilaterally. GASTROINTESTINAL: Abdomen soft, non-tender, mildly distended. Hepatic and splenic margins not palpable. MUSCULOSKELETAL: Extremities without clubbing, cyanosis, or edema. No obvious deformities. NEUROLOGICAL: Awake and alert. No obvious cranial nerve deficits. Motor grossly within normal limits. Five out of 5 muscle strength in the arms and legs. Normal speech. PSYCHIATRIC: Appropriate mood and affect; insight and judgment normal. Assessment and Plan Problem List: (1) New onset a-fib ICD Codes: I48.91 - Unspecified atrial fibrillation (2) Acute pancreatitis ICD Codes: K85.90 - Acute pancreatitis without necrosis or infection, unspecified (3) Hypertension ICD Codes: I10 - Essential (primary) hypertension (4) Diabetes mellitus ICD Codes: E11.9 - Type 2 diabetes mellitus without complications (5) Pneumonia ICD Codes: J18.9 - Pneumonia, unspecified organism Status: Acute Assessment and Plan 1) Acute pancreatitis per primary team 2) New onset AFib Converted to NSR CHADSVASc = 2 (HTN, DM) Eliquis 5mg BID 3) HTN 4) Possible discharge tomorrow Problem Qualifiers (1) Pneumonia: Qualified Codes: J18.1 - Lobar pneumonia, unspecified organism Cristian Diallo DO Feb 16, 2018 23:32
[2018-02-17] VITALS: BP 155/78; PULSE 79; RESP 18; TEMP 97.5; O2SAT 95
[2018-02-17] MEDS: METOPROLOL TARTRATE 50 MG TAB PO SCH ×2 (00:04→06:29)
[2018-02-17] MEDS: DILTIAZEM HCL 90 MG TAB PO SCH ×2 (00:04→06:30)
[2018-02-17] MEDS: MORPHINE SULFATE 4 MG/ML INJ IV PUSH PRN ×3 (00:05→06:30)
[2018-02-17] MEDS: SODIUM CHLORIDE 0.9% FLUSH 10 ML FLUSH IV FLUSH PRN ×3 (00:05→06:30)
[2018-02-17 03:55] VITALS: PULSE 70
[2018-02-17 04:00] VITALS: BP 149/82; PULSE 71; RESP 19; TEMP 97.8; O2SAT 95
[2018-02-17 07:37] LABS: HEMATOCRIT 43.4 % (39.0-51.0); HEMOGLOBIN 14.7 GM/DL (13.0-17.0); MEAN CELL VOLUME 81.8 FL (80.0-100.0); MEAN CORPUSCULAR HEMOGLOBIN 27.6 PG (27.0-34.0); MEAN CORPUSCULAR HGB CONC 33.7 % (32.0-36.0); MEAN PLATELET VOLUME 9.4 FL (7.0-11.0); PLATELET COUNT 286 TH/MM3 (150-450); RED BLOOD COUNT 5.31 MIL/MM3 (4.50-5.90); RED CELL DISTRIBUTION WIDTH 14.1 % (11.6-17.2); WHITE BLOOD COUNT 22.9 TH/MM3 (4.0-11.0)
[2018-02-17 07:40] LABS: BICARBONATE 21.5 MEQ/L (21.0-32.0); CALCIUM 8.1 MG/DL (8.5-10.1); CREATININE 0.91 MG/DL (0.60-1.30)
[2018-02-17 08:00] VITALS: BP 153/80; PULSE 69; RESP 18; TEMP 98.4; O2SAT 94
[2018-02-17 08:46] LABS: BANDS 6 % (0-6); LYMPHOCYTES 2 % (9-44); METAMYELOCYTES 1 % (0-1); MONOCYTES 5 % (0-8); NEUTROPHIL # MANUAL DIFF 21.3 TH/MM3 (1.8-7.7); POLYS (SEG NEUTROPHILS) 86 % (16-70)
[2018-02-17] MEDS ORDERED: LEVOFLOXACIN 750 MG TAB PO SCH (09:00)
--- NOTE | 2018-02-17 09:00 | HHI.PR ---
Subjective Remarks feels much better , eatign well no n/v/d/c. No abd pain . No fever or chills. No cough, palpitations. Objective Vitals Vital Signs Date Time Temp Pulse Resp B/P (MAP) Pulse Ox O2 Delivery O2 Flow Rate FiO2 02/17/18 08:00 98.4 69 18 153/80 (104) 94 02/17/18 04:00 Room Air 02/17/18 04:00 97.8 71 19 149/82 (104) 95 02/17/18 03:55 70 02/17/18 00:00 Room Air 02/17/18 00:00 97.5 79 18 155/78 (103) 95 02/16/18 23:49 77 02/16/18 20:00 72 02/16/18 20:00 97.1 78 18 137/74 (95) 93 02/16/18 20:00 Room Air 02/16/18 17:00 96 Room Air 02/16/18 17:00 97.3 84 20 162/77 (105) 95 02/16/18 16:00 98.7 72 16 159/83 (108) 97 02/16/18 12:05 95 Nasal Cannula 2.00 02/16/18 12:00 79 31 170/91 (117) 98 I/O 02/16/18 02/16/18 02/16/18 02/17/18 02/17/18 02/17/18 07:00 15:00 23:00 07:00 15:00 23:00 Intake Total 500 ml 840 ml Output Total 1600 ml Balance -1100 ml 840 ml Intake Oral 500 ml 840 ml Output Urine Total 1600 ml # Voids 4 # Bowel Movements 0 0 Result Diagram: 02/17/18 0640 02/17/18 0640 Imaging Last Impressions Upper Extremity Ultrasound 02/13/18 0000 Signed Impressions: Service Date/Time: Tuesday, February 13, 2018 14:28 - CONCLUSION: 1. Occlusive thrombus in the basilic vein from the mid humerus to the mid forearm with questionable residual catheter present. Onur Frias MD Abdomen X-Ray 02/11/18 0000 Signed Impressions: Service Date/Time: Sunday, February 11, 2018 12:52 - CONCLUSION: 1. Limited focal loops of slightly prominent small bowel in the mid-abdomen consistent with developing adynamic ileus. Eddie Nickerson MD Chest X-Ray 02/10/18 1606 Signed Impressions: Service Date/Time: February 16:17 - CONCLUSION: Persistent, but decreasing size, left lower lobe consolidation. Porfirio Whitley MD Objective Remarks GENERAL: Alert, Oriented x 3, somewhat uncomfortable in bed. CARDIOVASCULAR: Tachycardic, irregularly irregular, gallops, or rubs. RESPIRATORY: Moderate air entry, tachypneic. No accessory muscle use. GASTROINTESTINAL: Abdomen is very distended and firm. BS+, mildly tender to palpation. MUSCULOSKELETAL: No cyanosis. 2+ lower ext edema. Large cystic blisters present on both lower extremities. No surrounding erythema. BACK: Nontender without obvious deformity. No CVA tenderness. Procedures None. A/P Problem List: (1) Acute pancreatitis ICD Code: K85.90 - Acute pancreatitis without necrosis or infection, unspecified (2) Hypertension ICD Code: I10 - Essential (primary) hypertension (3) Diabetes mellitus ICD Code: E11.9 - Type 2 diabetes mellitus without complications Assessment and Plan Mr. Schaefer is a 47-year-old male with a history of hypertension, diabetes mellitus who was admitted to the hospital on 02/10/2018 due to increased abdominal pain and shortness of breath. Patient was originally admitted on 2017 due to acute pancreatitis. He was feeling better and thus left AGAINST MEDICAL ADVICE on 02/10/2018. Patient does not drink alcohol. In the previous hospitalization gallbladder ultrasound also was unremarkable. During his admission patient is found to have atrial fibrillation with RVR. He was started on amiodarone but his heart rate was not controlled. Acute pancreatitis Etiology unknown. CT abdomen pelvis on 02/10/2018 shows pancreatitis. IgG4 levels pending to rule out autoimmune pancreatitis. Triglyceride 191. Gallbladder ultrasound was unremarkable. GI follow up in the outpatient setting would be reasonable. Atrial fibrillation with RVR spontaneously converted to normal sinus rhythm Patient's abdominal distention and pain as well as acute pancreatitis probably the driving force for A. fib with RVR. We will continue Metoprolol as well as diltiazem p.o. Appreciate Cardiology input. Cardizem 90mg Q6 and Metoprolol 50mg Q8h. Patient is also on Apixaban. Echo - technically difficult study. Normal EF. Abdominal distention Possible abdominal compartment syndrome Patient's abdominal exam is concerning for abdominal compartment syndrome. Intra-abdominal pressure 18 -->10. Probable Left lower lobe pneumonia Received cefepime 2 g every 12 hours and azithromycin 500 mg daily IV. Switched to PO Levaquin Diabetes mellitus - Increased Levemir from 20 --> 25 units nightly and continue sliding scale insulin. Hypertension - Currently normotensive. Lower ext blisters - no surrounding erythema. They will likely resolve on their own. No intervention required. Keep legs elevated. Dr Ibanez was following for poss foreign body , discussed with Dr Ibanez doesn't recommends any surgery at this time. PT consult. Full code. Apixaban. Cleared by consultants for discharge. To follow-up as outpatient with PCP and consultants. Patient improved and feels comfortable to go home. Josephine Smiley MD Feb 17, 2018 09:00
[2018-02-17] MEDS: APIXABAN 5 MG TABLET PO SCH (09:01)
[2018-02-17] MEDS: INSULIN ASPART 1,000 UNITS/10 ML VIAL SQ SCH (09:01)
[2018-02-17] MEDS: INSULIN ASPART SUPPLEMENTAL SCALE SQ SCH (09:02)
[2018-02-17] MEDS ORDERED: METO-309 PO (09:05)
[2018-02-17] MEDS ORDERED: LEVA750T9 PO (09:05)
[2018-02-17] MEDS ORDERED: DILT90TA PO (09:05)
[2018-02-17] MEDS ORDERED: APIX5TAB PO (09:05)
--- NOTE | 2018-02-17 09:05 | HHI.DS ---
Discharge Summary Admission Date Feb 10, 2018 at 17:32 Discharge Date: Feb 17, 2018 Admitting Diagnosis sepsis, pneumonia, pancreatitis (1) Acute pancreatitis ICD Code: K85.90 - Acute pancreatitis without necrosis or infection, unspecified (2) Hypertension ICD Code: I10 - Essential (primary) hypertension (3) Diabetes mellitus ICD Code: E11.9 - Type 2 diabetes mellitus without complications Procedures None. Brief History - From Admission 47-year-old male who was admitted on 02/07/18 and treated for acute pancreatitis return to the emergency department today for the evaluation of abdominal pain and increasing shortness of breath. The patient left AGAINST MEDICAL ADVICE earlier today. When questioned about this, the patient states that he felt his pain was not being adequately treated at night and he was just laying in bed staring at the ceiling unable to sleep. During his hospitalization, the patient developed a new left lower lobe consolidation. He continues to complain of shortness of breath. He states he also has severe abdominal pain in the epigastrium that radiates to the back. He denies any chest pain. No nausea/vomiting/diarrhea. No weakness. No lateralizing signs/symptoms. CBC/BMP: 02/17/18 0640 02/17/18 0640 Significant Findings Laboratory Tests Test 02/17/18 06:40 White Blood Count 22.9 TH/MM3 (4.0-11.0) Neutrophils % (Manual) 86 % (16-70) Lymphocytes % 2 % (9-44) Neutrophils # (Manual) 21.3 TH/MM3 (1.8-7.7) Blood Urea Nitrogen 24 MG/DL (7-18) Random Glucose 184 MG/DL (74-106) Calcium Level 8.1 MG/DL (8.5-10.1) Potassium Level 3.4 MEQ/L (3.5-5.1) Imaging Last Impressions Upper Extremity Ultrasound 02/13/18 0000 Signed Impressions: Service Date/Time: Tuesday, February 13, 2018 14:28 - CONCLUSION: 1. Occlusive thrombus in the basilic vein from the mid humerus to the mid forearm with questionable residual catheter present. Onur Frias MD Abdomen X-Ray 02/11/18 0000 Signed Impressions: Service Date/Time: Sunday, February 11, 2018 12:52 - CONCLUSION: 1. Limited focal loops of slightly prominent small bowel in the mid-abdomen consistent with developing adynamic ileus. Eddie Nickerson MD Chest X-Ray 02/10/18 1606 Signed Impressions: Service Date/Time: February 16:17 - CONCLUSION: Persistent, but decreasing size, left lower lobe consolidation. Porfirio Whitley MD PE at Discharge GENERAL: Alert, Oriented x 3, somewhat uncomfortable in bed. CARDIOVASCULAR: Tachycardic, irregularly irregular, gallops, or rubs. RESPIRATORY: Moderate air entry, tachypneic. No accessory muscle use. GASTROINTESTINAL: Abdomen is very distended and firm. BS+, mildly tender to palpation. MUSCULOSKELETAL: No cyanosis. 2+ lower ext edema. Large cystic blisters present on both lower extremities. No surrounding erythema. BACK: Nontender without obvious deformity. No CVA tenderness. Hospital Course Mr. Schaefer is a 47-year-old male with a history of hypertension, diabetes mellitus who was admitted to the hospital on 02/10/2018 due to increased abdominal pain and shortness of breath. Patient was originally admitted on 2017 due to acute pancreatitis. He was feeling better and thus left AGAINST MEDICAL ADVICE on 02/10/2018. Patient does not drink alcohol. In the previous hospitalization gallbladder ultrasound also was unremarkable. During his admission patient is found to have atrial fibrillation with RVR. He was started on amiodarone but his heart rate was not controlled. Acute pancreatitis Etiology unknown. CT abdomen pelvis on 02/10/2018 shows pancreatitis. IgG4 levels pending to rule out autoimmune pancreatitis. Triglyceride 191. Gallbladder ultrasound was unremarkable. GI follow up in the outpatient setting would be reasonable. Atrial fibrillation with RVR spontaneously converted to normal sinus rhythm Patient's abdominal distention and pain as well as acute pancreatitis probably the driving force for A. fib with RVR. We will continue Metoprolol as well as diltiazem p.o. Appreciate Cardiology input. Cardizem 90mg Q6 and Metoprolol 50mg Q8h. Patient is also on Apixaban. Echo - technically difficult study. Normal EF. Abdominal distention Possible abdominal compartment syndrome Patient's abdominal exam is concerning for abdominal compartment syndrome. Intra-abdominal pressure 18 -->10. Probable Left lower lobe pneumonia Received cefepime 2 g every 12 hours and azithromycin 500 mg daily IV. Switched to PO Levaquin Diabetes mellitus - Increased Levemir from 20 --> 25 units nightly and continue sliding scale insulin. Hypertension - Currently normotensive. Lower ext blisters - no surrounding erythema. They will likely resolve on their own. No intervention required. Keep legs elevated. Dr Ibanez was following for poss foreign body , discussed with Dr Ibanez doesn't recommends any surgery at this time. PT consult. Full code. Apixaban. Cleared by consultants for discharge. To follow-up as outpatient with PCP and consultants. Patient improved and feels comfortable to go home. Pt Condition on Discharge: Stable Discharge Disposition: Discharge Home Discharge Time: > 30 minutes Discharge Instructions DIET: Follow Instructions for: Heart Healthy Diet, Diabetic Diet Activities you can perform: Regular-No Restrictions Activities to Avoid: Driving Follow up Referrals: Cardiology - 2 Weeks Cardiology, Interventional @ [facility] - 1 Week PCP Follow-up - 2-3 Days PCP Follow-up with NO PCP Vascular Surgery - 1 Week with Kala Ibanez MD New Medications: Apixaban (Eliquis) 5 Mg Tab 5 MG PO BID for Blood Clot Prevention, #60 TAB Diltiazem (Diltiazem) 90 Mg Tab 90 MG PO Q6HR for Blood Pressure Management, #120 TAB Levofloxacin (Levaquin) 750 Mg Tablet 750 MG PO DAILY for Infection, #6 TAB Metoprolol Tartrate (Lopressor) 50 Mg Tab 50 MG PO Q6HR for Blood Clot Prevention, #120 TAB Continued Medications: Amlodipine (Amlodipine) 2.5 Mg Tab Unknown Dose PO DAILY for Blood Pressure Management, #30 TAB 0 Refills Dapagliflozin (Farxiga) 5 Mg Tab Unknown Dose PO DAILY for Blood Sugar Management, #30 TAB 0 Refills Glipizide (Glipizide) 5 Mg Tab 5 MG PO DAILY for Blood Sugar Management, #30 TAB 0 Refills Take 30 minutes before a meal Lisinopril (Lisinopril) 2.5 Mg Tab Unknown Dose PO DAILY, #30 TAB 0 Refills Metformin (Metformin) 1,000 Mg Tab Unknown Dose PO BIDPC for Blood Sugar Management, #60 TAB 0 Refills Josephine Smiley MD Feb 17, 2018 09:05
[2018-02-17] MEDS ORDERED: POTASSIUM CHLORIDE 10 MEQ CONTROLLED RELEASE TAB PO ONE (09:15)
[2018-02-17] MEDS ORDERED: MAGNESIUM OXIDE 400 MG TAB PO ONE (09:15)
[2018-02-17 09:48] VITALS: O2SAT 94
== END 2018-02-17 11:09 | disposition home or self-care (01) | DRG 871 ==
LOC: NEPE 15:54 → NEDA 17:32 → N07B 19:07 → HIME 02-11 06:30 → HIMN 02-11 18:45 → N04A 02-16 17:00
PROVIDERS: ADMIT Hospitalist; ATTEND Hospitalist
DX: A41.9 Sepsis, unspecified organism (principal); K85.90 Acute pancreatitis without necrosis or infection, unspecified; J18.9 Pneumonia, unspecified organism; E11.22 Type 2 diabetes mellitus with diabetic chronic kidney disease; I48.91 Unspecified atrial fibrillation; I82.612 Acute embolism and thrombosis of superficial veins of left upper extremity; Z68.41 Body mass index [BMI] 40.0-44.9, adult; Y95 Nosocomial condition; I12.9 Hypertensive chronic kidney disease with stage 1 through stage 4 chronic kidney disease, or unspecified chronic kidney disease; N18.9 Chronic kidney disease, unspecified; R00.0 Tachycardia, unspecified; R14.0 Abdominal distension (gaseous); E83.51 Hypocalcemia; E66.9 Obesity, unspecified; Z79.84 Long term (current) use of oral hypoglycemic drugs
CPT/HCPCS: 71045; 74018; 76882; 76937; 80048; 80053; 81001; 82784; 82787; 82948; 83605; 83690; 83735; 84155; 84478; 85007; 85027; 87040; 87641; 93005; 93306; 94664; 96361; 96374; 96375; J0456; J0610; J0692; J1650; J1815; J2270; J2405; J7030; J7050